=== PATIENT | male | born 1935 | race Caucasian/White ===

== ENCOUNTER 2016-10-23 08:01 | Inpatient (IN) | payer MEDICARE ==
[2016-10-23] VITALS (19 sets, daily range): BP systolic 94–160; BP diastolic 50–96; PULSE 64–94; RESP 16–20; TEMP 97.6–98.5; O2SAT 93–96
[~2016-10-23] VITALS: Ht 180.3 cm; Wt 79.1 kg
[~2016-10-23 08:01] MED LIST: ALLO100T PO; ATOR80TA PO; FENO145T2 PO; HYDR-3533 PO; METO100T9 PO; RIVA20 PO
[2016-10-23] MEDS ORDERED: SODIUM CHLOR 0.9% 1000 ML INJ 1,000 ML IV ONE (08:26)
[2016-10-23] MEDS ORDERED: SODIUM CHLORIDE 0.9% FLUSH 10 ML FLUSH IVF PRN (08:30)
--- NOTE | 2016-10-23 08:40 | PD ---
HPI Chief Complaint: Syncope/Near-Syncope Time Seen by Provider: 08:11 Travel History International Travel<30 days: No Contact w/Intl Traveler<30days: No Traveled to known affect area: No History of Present Illness HPI Patient is an 81-year-old male with history of coronary artery disease, dyspnea , gout, hyperlipidemia, hypertension, rectal cancer, skin cancer, murmurs who presents to emergency room with possible syncopal episode. Patient reports that this morning, he got up and had his coffee, reports that he then went to help his get ready for the day. Reports that he felt lightheaded and dizzy , reports that he put his coffee on the kitchen table and tried to sit down, but missed the chair. Patient reports that he thought that he was going to faint so he decided to lay down on the patient on the ground. Patient reports that he decided to get up and lay on the couch but on route to his couch, he fell. Patient reports that he wasn't sure what happened, reports that he woke up on the ground and noticed that he bumped his face and had abrasions to his face. Reports that he got up from the ground shortly thereafter and called for help. Patient reports that he feels better at this time, denies any lightheadedness or dizziness. Patient did take a baby aspirin each day, reports that 2 weeks ago, Dr. Fountain told him to stop taking his aspirin as he was getting procedures for skin cancer. Patient reports that he does follow speech language specialist, Dr. Fountain, reports that 2 weeks ago, Dr. Fountain decreased his dose of metoprolol to 25 mg twice a day ( prior to that he was taking metoprolol 50mg bid) and added Norvasc 5 mg, patient states losartan was increased to 100 mg from 50 mg daily. When EMS arrived on scene, patient was hypotensive with a blood pressure 90/60, repeat blood pressure was 80/60, patient received 500 mL's of fluid, repeat blood pressure was 109/77. Fire rescue did report an initial pulse ox of 74% on room air, when evac arrived on scene, pt's pulse ox of 95% on room air. Patient does not use oxygen at home, denies history of COPD, CHF. PFSH Past Medical History Blood Disorders: No Heart Rhythm Problems: No Cancer: Yes (COLORECTAL, SKIN) Cardiovascular Problems: Yes (STENT (x1), PE & THROMBUS POST COLECTOMY) High Cholesterol: Yes Chemotherapy: Yes Chest Pain: No Congestive Heart Failure: No Diabetes: No Diminished Hearing: Yes (b hearing aides) Endocrine: No Gastrointestinal Disorders: Yes (COLORECTAL CANCER, ILEOSTOMY) Genitourinary: No Hepatitis: No Hiatal Hernia: No Hypertension: Yes (started new meds 2 wks ago) Immune Disorder: No Medical other: Yes ([employer]) Musculoskeletal: No Neurologic: No Psychiatric: No Reproductive: No Respiratory: No Immunizations Current: Yes Radiation Therapy: Yes Thyroid Disease: No Tetanus Vaccination: Unknown Influenza Vaccination: Yes Past Surgical History Abdominal Surgery: Yes (APPY, COLON RESECTION/ ILEOSTOMY) AICD: No Appendectomy: Yes Eye Surgery: Yes (CARYN. CATARACT EXTRACT.) Genitourinary Surgery: Yes (VASECTOMY) Joint Replacement: No Oral Surgery: Yes (TONSILLECTOMY) Pacemaker: No Tonsillectomy: Yes Other Surgery: Yes Social History Alcohol Use: Yes (occas) Tobacco Use: No Substance Use: No Allergies-Medications (Allergen,Severity, Reaction): Coded Allergies: Apple (Verified Allergy, Severe, tongue swells, 10/23/16) only fresh ok when cooked Fruit Juice (Verified Allergy, Severe, swelling, 10/23/16) fresh fruit [place] (Verified Allergy, Severe, tongue swells, 10/23/16) only with fresh fruit. ok when cooked Pear (Verified Allergy, Severe, tongue swells, 10/23/16) only when raw. ok cooked Plavix (Verified Allergy, Severe, swelling, 10/23/16) Codeine (Verified Allergy, Intermediate, severe headaches, 10/23/16) Reported Meds & Prescriptions Reported Meds & Active Scripts Active Reported Norvasc (Amlodipine Besylate) 5 Mg Tab 5 Mg PO DAILY Metoprolol Tartrate 50 Mg Tab 25 Mg PO BID Losartan (Losartan Potassium) 50 Mg Tab 100 Mg PO DAILY Fenofibrate 145 Mg Tab 145 Mg PO DAILY Allopurinol 100 Mg Tab 100 Mg PO DAILY Review of Systems General / Constitutional: No: Fever Eyes: No: Visual changes HENT: No: Headaches Cardiovascular: Positive: Syncope, No: Chest Pain or Discomfort Respiratory: No: Shortness of Breath Gastrointestinal: No: Abdominal Pain Genitourinary: No: Dysuria Musculoskeletal: No: Pain Skin: No Rash Neurologic: No: Weakness Psychiatric: No: Depression Endocrine: No: Polydipsia Hematologic/Lymphatic: No: Easy Bruising Physical Exam Narrative GENERAL: Mild distress SKIN: Focused skin assessment warm/dry. Patient with 0.5 cm linear laceration under left eye HEAD: Atraumatic. Normocephalic. EYES: Pupils equal and round. No scleral icterus. No injection or drainage. ENT: No nasal bleeding or discharge. Mucous membranes pink and moist. NECK: Trachea midline. No JVD. CARDIOVASCULAR: Regular rate and rhythm. No murmur appreciated. RESPIRATORY: No accessory muscle use. Clear to auscultation. Breath sounds equal bilaterally. GASTROINTESTINAL: Abdomen soft, non-tender, nondistended. Hepatic and splenic margins not palpable. MUSCULOSKELETAL: No obvious deformities. No clubbing. No cyanosis. No edema. NEUROLOGICAL: Awake and alert. No obvious cranial nerve deficits. Motor grossly within normal limits. Normal speech. PSYCHIATRIC: Appropriate mood and affect; insight and judgment normal. Data Data Last Documented VS Vital Signs Date Time Temp Pulse Resp B/P Pulse Ox O2 Delivery O2 Flow Rate FiO2 10/23/16 10:02 84 18 116/65 93 Nasal Cannula 2 10/23/16 08:10 98.5 Orders Electrocardiogram (10/23/16 08:26) Complete Blood Count With Diff (10/23/16 08:26) Comprehensive Metabolic Panel (10/23/16 08:26) Magnesium (Mg) (10/23/16 08:26) B-Type Natriuretic Peptide (10/23/16 08:26) Ckmb (Isoenzyme) Profile (10/23/16 08:26) Troponin I (10/23/16 08:26) Act Partial Throm Time (Ptt) (10/23/16 08:26) Prothrombin Time / Inr (Pt) (10/23/16 08:26) Urinalysis - C+S If Indicated (10/23/16 08:26) Chest, Single Ap (10/23/16 08:26) Ct Brain W/O Iv Contrast(Rout) (10/23/16 08:26) Ecg Monitoring (10/23/16 08:26) Iv Access Insert/Monitor (10/23/16 08:26) Oximetry (10/23/16 08:26) Sodium Chloride 0.9% Flush (Ns Flush) (10/23/16 08:30) Sodium Chlor 0.9% 1000 Ml Inj (Ns 1000 M (10/23/16 08:26) Orthostatic Vital Signs (10/23/16 08:26) Wound Care (10/23/16 08:28) Electrocardiogram (10/23/16 ) Urine Culture (10/23/16 09:36) Aspirin Chew (Aspirin Chew) (10/23/16 10:15) Ceftriaxone Inj (Rocephin Inj) (10/23/16 10:15) Consult Cardiology (10/23/16 ) Admit Order (Ed Use Only) (10/23/16 10:16) Labs Laboratory Tests Test 10/23/16 10/23/16 10/23/16 08:32 08:50 09:36 White Blood Count 10.5 TH/MM3 Red Blood Count 4.21 MIL/MM3 Hemoglobin 12.7 GM/DL Hematocrit 38.2 % Mean Corpuscular Volume 90.8 FL Mean Corpuscular Hemoglobin 30.2 PG Mean Corpuscular Hemoglobin 33.3 % Concent Red Cell Distribution Width 14.5 % Platelet Count 143 TH/MM3 Mean Platelet Volume 8.1 FL Neutrophils (%) (Auto) 87.4 % Lymphocytes (%) (Auto) 6.9 % Monocytes (%) (Auto) 3.1 % Eosinophils (%) (Auto) 2.2 % Basophils (%) (Auto) 0.4 % Neutrophils # (Auto) 9.2 TH/MM3 Lymphocytes # (Auto) 0.7 TH/MM3 Monocytes # (Auto) 0.3 TH/MM3 Eosinophils # (Auto) 0.2 TH/MM3 Basophils # (Auto) 0.0 TH/MM3 CBC Comment DIFF FINAL Differential Comment Sodium Level 139 MEQ/L Potassium Level 3.9 MEQ/L Chloride Level 107 MEQ/L Carbon Dioxide Level 22.0 MEQ/L Anion Gap 10 MEQ/L Blood Urea Nitrogen 22 MG/DL Creatinine 1.58 MG/DL Estimat Glomerular Filtration 42 ML/MIN Rate Random Glucose 190 MG/DL Calcium Level 9.0 MG/DL Magnesium Level 1.9 MG/DL Total Bilirubin 0.4 MG/DL Aspartate Amino Transf 64 U/L (AST/SGOT) Alanine Aminotransferase 36 U/L (ALT/SGPT) Alkaline Phosphatase 75 U/L Total Creatine Kinase 97 U/L Troponin I 0.13 NG/ML B-Type Natriuretic Peptide 25 PG/ML Total Protein 6.5 GM/DL Albumin 3.1 GM/DL Prothrombin Time 12.7 SEC Prothromb Time International 1.1 RATIO Ratio Activated Partial 27.8 SEC Thromboplast Time Urine Color LIGHT-YELLOW Urine Turbidity CLEAR Urine pH 6.0 Urine Specific [place] 1.007 Urine Protein 30 mg/dL Urine Glucose (UA) TRACE mg/dL Urine Ketones NEG mg/dL Urine Occult Blood TRACE Urine Nitrite NEG Urine Bilirubin NEG Urine Urobilinogen LESS THAN 2.0 MG/DL Urine Leukocyte Esterase NEG Urine RBC 5 /hpf Urine WBC 10 /hpf Urine Squamous Epithelial <1 /hpf Cells Urine Bacteria OCC /hpf Urine Mucus FEW /lpf Microscopic Urinalysis Comment CULTURE INDICATED MDM Medical Decision Making Medical Screen Exam Complete: Yes Emergency Medical Condition: Yes Interpretation(s) EKG at 0828: NSR at 93bpm, qt/qtc: 416/466, lbbb, no acute changes Vital Signs Date Time Temp Pulse Resp B/P Pulse Ox O2 Delivery O2 Flow Rate FiO2 10/23/16 08:10 94 20 118/69 95 Differential Diagnosis ACS, arrhythmia, intracranial hemorrhage, CVA, TIA, electrolyte abnormality, dehydration, orthostatic hypotension Narrative Course Patient is an 81-year-old male who presents to emergency room for evaluation of syncopal episode. Patient was at home today when he had this incident, patient was found to be hypoxic and hypotensive by EMS and fire rescue. Patient was given 500 and also fluids and blood pressure improved to 109/77. Patient reports that prior to this episode, he felt lightheaded and dizzy. Patient reports that he has no complaints at this time. Patient was placed on a tariff publishing agent upon arrival to the emergency room. EKG obtained. Plan to obtain CT of the head, will obtain lab work, orthostatic vital signs an x-ray of the chest. Plan to place Dermabond to his laceration under his left eye. Vital Signs Date Time Temp Pulse Resp B/P Pulse Ox O2 Delivery O2 Flow Rate FiO2 10/23/16 10:02 84 18 116/65 93 Nasal Cannula 2 10/23/16 09:27 91 20 109/57 99 20 117/56 100 20 128/57 10/23/16 09:22 95 Nasal Cannula 2 10/23/16 09:11 88 20 94/50 96 Nasal Cannula 2 10/23/16 08:31 94 Nasal Cannula 2 10/23/16 08:10 94 20 118/69 95 Laboratory Tests Test 10/23/16 10/23/16 10/23/16 08:32 08:50 09:36 White Blood Count 10.5 TH/MM3 (4.0-11.0) Red Blood Count 4.21 MIL/MM3 (4.50-5.90) Hemoglobin 12.7 GM/DL (13.0-17.0) Hematocrit 38.2 % (39.0-51.0) Mean Corpuscular Volume 90.8 FL (80.0-100.0) Mean Corpuscular Hemoglobin 30.2 PG (27.0-34.0) Mean Corpuscular Hemoglobin 33.3 % Concent (32.0-36.0) Red Cell Distribution Width 14.5 % (11.6-17.2) Platelet Count 143 TH/MM3 (150-450) Mean Platelet Volume 8.1 FL (7.0-11.0) Neutrophils (%) (Auto) 87.4 % (16.0-70.0) Lymphocytes (%) (Auto) 6.9 % (9.0-44.0) Monocytes (%) (Auto) 3.1 % (0.0-8.0) Eosinophils (%) (Auto) 2.2 % (0.0-4.0) Basophils (%) (Auto) 0.4 % (0.0-2.0) Neutrophils # (Auto) 9.2 TH/MM3 (1.8-7.7) Lymphocytes # (Auto) 0.7 TH/MM3 (1.0-4.8) Monocytes # (Auto) 0.3 TH/MM3 (0-0.9) Eosinophils # (Auto) 0.2 TH/MM3 (0-0.4) Basophils # (Auto) 0.0 TH/MM3 (0-0.2) CBC Comment DIFF FINAL Differential Comment Sodium Level 139 MEQ/L (136-145) Potassium Level 3.9 MEQ/L (3.5-5.1) Chloride Level 107 MEQ/L (98-107) Carbon Dioxide Level 22.0 MEQ/L (21.0-32.0) Anion Gap 10 MEQ/L (5-15) Blood Urea Nitrogen 22 MG/DL (7-18) Creatinine 1.58 MG/DL (0.60-1.30) Estimat Glomerular Filtration 42 ML/MIN (>89) Rate Random Glucose 190 MG/DL (74-106) Calcium Level 9.0 MG/DL (8.5-10.1) Magnesium Level 1.9 MG/DL (1.5-2.5) Total Bilirubin 0.4 MG/DL (0.2-1.0) Aspartate Amino Transf 64 U/L (15-37) (AST/SGOT) Alanine Aminotransferase 36 U/L (12-78) (ALT/SGPT) Alkaline Phosphatase 75 U/L (45-117) Total Creatine Kinase 97 U/L (39-308) Troponin I 0.13 NG/ML (0.02-0.05) B-Type Natriuretic Peptide 25 PG/ML (0-100) Total Protein 6.5 GM/DL (6.4-8.2) Albumin 3.1 GM/DL (3.4-5.0) Prothrombin Time 12.7 SEC (9.8-11.6) Prothromb Time International 1.1 RATIO Ratio Activated Partial 27.8 SEC Thromboplast Time (24.3-30.1) Urine Color LIGHT-YELLOW (YELLW/STRAW) Urine Turbidity CLEAR (CLEAR) Urine pH 6.0 (5.0-8.5) Urine Specific [place] 1.007 (1.002-1.035) Urine Protein 30 mg/dL (NEG-TRACE) Urine Glucose (UA) TRACE mg/dL (NEG) Urine Ketones NEG mg/dL (NEG) Urine Occult Blood TRACE (NEG) Urine Nitrite NEG (NEG) Urine Bilirubin NEG (NEG) Urine Urobilinogen LESS THAN 2.0 MG/DL (LESS THAN 2.0) Urine Leukocyte Esterase NEG (NEG) Urine RBC 5 /hpf (0-3) Urine WBC 10 /hpf (0-5) Urine Squamous Epithelial <1 /hpf (0-5) Cells Urine Bacteria OCC /hpf (NONE) Urine Mucus FEW /lpf (OCC) Microscopic Urinalysis Comment CULTURE INDICATED Laboratory Tests Test 10/23/16 10/23/16 10/23/16 08:32 08:50 09:36 White Blood Count 10.5 TH/MM3 (4.0-11.0) Red Blood Count 4.21 MIL/MM3 (4.50-5.90) Hemoglobin 12.7 GM/DL (13.0-17.0) Hematocrit 38.2 % (39.0-51.0) Mean Corpuscular Volume 90.8 FL (80.0-100.0) Mean Corpuscular Hemoglobin 30.2 PG (27.0-34.0) Mean Corpuscular Hemoglobin 33.3 % Concent (32.0-36.0) Red Cell Distribution Width 14.5 % (11.6-17.2) Platelet Count 143 TH/MM3 (150-450) Mean Platelet Volume 8.1 FL (7.0-11.0) Neutrophils (%) (Auto) 87.4 % (16.0-70.0) Lymphocytes (%) (Auto) 6.9 % (9.0-44.0) Monocytes (%) (Auto) 3.1 % (0.0-8.0) Eosinophils (%) (Auto) 2.2 % (0.0-4.0) Basophils (%) (Auto) 0.4 % (0.0-2.0) Neutrophils # (Auto) 9.2 TH/MM3 (1.8-7.7) Lymphocytes # (Auto) 0.7 TH/MM3 (1.0-4.8) Monocytes # (Auto) 0.3 TH/MM3 (0-0.9) Eosinophils # (Auto) 0.2 TH/MM3 (0-0.4) Basophils # (Auto) 0.0 TH/MM3 (0-0.2) CBC Comment DIFF FINAL Differential Comment Sodium Level 139 MEQ/L (136-145) Potassium Level 3.9 MEQ/L (3.5-5.1) Chloride Level 107 MEQ/L (98-107) Carbon Dioxide Level 22.0 MEQ/L (21.0-32.0) Anion Gap 10 MEQ/L (5-15) Blood Urea Nitrogen 22 MG/DL (7-18) Creatinine 1.58 MG/DL (0.60-1.30) Estimat Glomerular Filtration 42 ML/MIN (>89) Rate Random Glucose 190 MG/DL (74-106) Calcium Level 9.0 MG/DL (8.5-10.1) Magnesium Level 1.9 MG/DL (1.5-2.5) Total Bilirubin 0.4 MG/DL (0.2-1.0) Aspartate Amino Transf 64 U/L (15-37) (AST/SGOT) Alanine Aminotransferase 36 U/L (12-78) (ALT/SGPT) Alkaline Phosphatase 75 U/L (45-117) Total Creatine Kinase 97 U/L (39-308) Troponin I 0.13 NG/ML (0.02-0.05) B-Type Natriuretic Peptide 25 PG/ML (0-100) Total Protein 6.5 GM/DL (6.4-8.2) Albumin 3.1 GM/DL (3.4-5.0) Prothrombin Time 12.7 SEC (9.8-11.6) Prothromb Time International 1.1 RATIO Ratio Activated Partial 27.8 SEC Thromboplast Time (24.3-30.1) Urine Color LIGHT-YELLOW (YELLW/STRAW) Urine Turbidity CLEAR (CLEAR) Urine pH 6.0 (5.0-8.5) Urine Specific [place] 1.007 (1.002-1.035) Urine Protein 30 mg/dL (NEG-TRACE) Urine Glucose (UA) TRACE mg/dL (NEG) Urine Ketones NEG mg/dL (NEG) Urine Occult Blood TRACE (NEG) Urine Nitrite NEG (NEG) Urine Bilirubin NEG (NEG) Urine Urobilinogen LESS THAN 2.0 MG/DL (LESS THAN 2.0) Urine Leukocyte Esterase NEG (NEG) Urine RBC 5 /hpf (0-3) Urine WBC 10 /hpf (0-5) Urine Squamous Epithelial <1 /hpf (0-5) Cells Urine Bacteria OCC /hpf (NONE) Urine Mucus FEW /lpf (OCC) Microscopic Urinalysis Comment CULTURE INDICATED Last Impressions Head CT 10/23/16825 Signed Impressions: Service Date/Time: October 08:54 - CONCLUSION: No acute intracranial findings. Venkatesh Mistry MD Chest X-Ray 10/23/16825 Signed Impressions: Service Date/Time: October 08:28 - CONCLUSION: No acute cardiopulmonary disease identified. Venkatesh Mistry MD CT of the head shows no intracranial findings, x-ray of the chest shows no acute cardio possible disease, WBC is 10.5, hemoglobin is 12.7, hematocrit is 38.2, platelets is 143 Sodium 139, potassium 3.9, BUN 82, creat 1.58, glucose 190 (creat elevated from baseline) Troponin 0.13 EKG was repeated at 1007: NSR at 85bpm, qt/qtc: 424/466, lbbb patient given asa Case reviewed with Dr. Mathew will admit to Dr. Mantilla service call made to dr. fountain with [facility] Procedures Procedure Narrative LACERATION LOCATION: under left eye LENGTH: 0.5cm NUMBER OF STITCHES/AUREA: 0 - dermabond was used for laceration repair REPAIR: The area of the laceration was prepped with Betadine and sterilely draped. The wound was copiously irrigated and explored without evidence of foreign body, tendon injury or neurovascular injury. The wound was closed using dermabond. This was a single layer repair. A sterile dressing was applied. The patient was advised to keep the dressing clean and dry. Patient tolerated the procedure well. Diagnosis Primary Impression: Syncope and collapse Additional Impressions: Laceration of face Thrombocytopenia Anemia NSTEMI (non-ST elevated myocardial infarction) Renal insufficiency UTI (urinary tract infection) Admitting Information Admitting Physician Requests: Kateryna Diaz DO Oct 23, 2016 08:40
[2016-10-23 08:52] LABS: AUTOMATED NEUTROPHIL # 9.2 TH/MM3 (1.8-7.7); BASOPHIL % 0.4 % (0.0-2.0); EOSINOPHIL # 0.2 TH/MM3 (0-0.4); EOSINOPHIL % 2.2 % (0.0-4.0); HEMATOCRIT 38.2 % (39.0-51.0); HEMO FLAGS DIFF FINAL; LYMPH % 6.9 % (9.0-44.0); LYMPHOCYTE # 0.7 TH/MM3 (1.0-4.8); MEAN CELL VOLUME 90.8 FL (80.0-100.0); MEAN CORPUSCULAR HEMOGLOBIN 30.2 PG (27.0-34.0); MEAN CORPUSCULAR HGB CONC 33.3 % (32.0-36.0); MONO % 3.1 % (0.0-8.0); NEUT % 87.4 % (16.0-70.0); PLATELET COUNT 143 TH/MM3 (150-450); RED BLOOD COUNT 4.21 MIL/MM3 (4.50-5.90); RED CELL DISTRIBUTION WIDTH 14.5 % (11.6-17.2); WHITE BLOOD COUNT 10.5 TH/MM3 (4.0-11.0)
[2016-10-23] MEDS ORDERED: METO50TA PO (08:56)
[2016-10-23] MEDS ORDERED: ALLO100T PO (08:56)
[2016-10-23] MEDS ORDERED: FENO145T2 PO (08:56)
[2016-10-23] MEDS ORDERED: LOSA50TA PO (08:56)
[2016-10-23] MEDS ORDERED: AMLO5 PO (08:57)
[2016-10-23 09:13] LABS: ANION GAP 10 MEQ/L (5-15); AST (GOT) 64 U/L (15-37); BLOOD UREA NITROGEN 22 MG/DL (7-18); CHLORIDE 107 MEQ/L (98-107); GLOMERULAR FILTRATION RATE 42 ML/MIN (>89); MAGNESIUM 1.9 MG/DL (1.5-2.5); POTASSIUM 3.9 MEQ/L (3.5-5.1); SODIUM (NA) 139 MEQ/L (136-145)
[2016-10-23 09:18] LABS: APTT (PATIENT) 27.8 SEC (24.3-30.1); INTERNATIONAL NORMALIZED RATIO 1.1 RATIO; PROTHROMBIN TIME - PATIENT 12.7 SEC (9.8-11.6)
[2016-10-23 09:18] LABS: ALKALINE PHOSPHATASE 75 U/L (45-117); ALT (GPT) 36 U/L (12-78); TOTAL BILIRUBIN ADULT 0.4 MG/DL (0.2-1.0)
--- NOTE | 2016-10-23 09:22 | RADRPT ---
EXAM DATE/TIME: 10/23/2016 08:54 [facility] COMPARISON: No previous studies available for comparison. INDICATIONS : Dizziness with fall RADIATION DOSE: 56.35 CTDIvol (mGy) MEDICAL HISTORY : Cardiovascular disease. Hypertension. SURGICAL HISTORY : Appendectomy. Ileostomy ENCOUNTER: Initial ACUITY: 1 day PAIN SCALE: 0/10 LOCATION: cranial TECHNIQUE: Multiple contiguous axial images were obtained of the head. Using automated exposure control and adj ustment of the mA and/or kV according to patient size, radiation dose was kept as low as reasonably a chievable to obtain optimal diagnostic quality images. FINDINGS: CEREBRUM: The ventricles are normal for age. No evidence of midline shift, mass lesion, hemorrhage or acute in farction. No extra-axial fluid collections are seen. POSTERIOR FOSSA: The cerebellum and brainstem are intact. The 4th ventricle is midline. The cerebellopontine angle i s unremarkable. EXTRACRANIAL: The visualized portion of the orbits is intact. SKULL: The calvaria is intact. No evidence of skull fracture. CONCLUSION: No acute intracranial findings. Venkatesh Mistry MD on October 23, 2016 at 9:18 Board Certified Radiologist. This report was verified electronically.
[2016-10-23 09:25] LABS: CREATINE KINASE 97 U/L (39-308)
--- NOTE | 2016-10-23 09:43 | RADRPT ---
EXAM DATE/TIME: 10/23/2016 08:28 [facility] COMPARISON: No previous studies available for comparison. INDICATIONS : Syncope MEDICAL HISTORY : None. SURGICAL HISTORY : None. ENCOUNTER: Initial ACUITY: 1 day PAIN SCORE: 0/10 LOCATION: Bilateral chest FINDINGS: Single AP view of the chest. The lungs are clear. Cardiomediastinal silhouette within normal limits. No evidence of pleural effusion or pneumothorax. CONCLUSION: No acute cardiopulmonary disease identified. Venkatesh Mistry MD on October 23, 2016 at 9:27 Board Certified Radiologist. This report was verified electronically.
[2016-10-23 10:01] LABS: BACTERIA, URINE OCC /hpf; BLOOD, URINE TRACE (NEG); COMMENT (UR) CULTURE INDICATED; CULTURE IF INDICATED CULTURE INDICATED; GLUCOSE,URINE TRACE mg/dL (NEG); KETONE, URINE NEG (NEG); MUCUS URINE FEW /lpf (OCC); NITRITE,URINE NEG (NEG); SQUAMOUS EPITHELIAL CELL URINE <1 /hpf (0-5); URINE COLOR LIGHT-YELLOW (YELLW/STRAW)
[2016-10-23] MEDS ORDERED: ASPIRIN 81 MG CHEW TAB CHEW ONE (10:15)
[2016-10-23] MEDS ORDERED: cefTRIAXone INJ 1,000 MG in SODIUM CHLORIDE 0.9% INJ 100 ML IV ONE (10:15)
--- NOTE | 2016-10-23 10:24 | HHI.HP ---
[facility] Service Family Medicine Primary Care Physician Henrietta Olivia, DO Admission Diagnosis NSTEMI, Syncope Diagnoses: International Travel<30 Days: No Contact w/Intl Traveler<30days: No Known Affected Area: No History of Present Illness 81-year-old male with past history of CAD, high blood pressure, rectal cancer presents with syncopal-like event this morning. Patient states he got up in his normal state of health this morning. He went to the kitchen, poured himself a cup of coffee and helped his get dressed. As he approached the table, he felt "a little pain" in his left groin. This pain was different than he has ever felt before. He began feeling faint and lightheaded. He went to sit down and his coffee started to spill. He grabbed for his coffee and spilled it. His states he had a staring gaze. As he went to get out of his chair to head to the living room, he stumbled, fell to his knees. He felt weak and "lightheaded." He started sweating. His called 911 and he continued to feel lightheaded and nauseous. He remained on the ground until EMS arrived. When EMS arrived, his blood pressure was reportedly 90/60 and 80/ 60. The patient received 500 mL's of fluid and his repeat blood pressure measurement was 109/77. Currently during my interview, the patient feels much better. He denies ever losing consciousness. He remembers everything that happened. Denies any seizure-like activity. He has never felt like this before. However, over the last 2 months he has becoming increasing short of breath. Normally he is able to play full 18 holes of golf, now he gets tired with 9 holes. He feels like he gets tired with 4-5 blocks of walking. He recently had a thorough workup with his dx board operator, Dr. Long, including echocardiogram which she reports as normal. He also had a stress test and EKG which were reportedly within normal limits. His dx board operator has made medication adjustments including increasing his losartan and decreasing his metoprolol medication. He denies any urinary symptoms. He denies dizziness or vertigo. Denies chest pain or palpitations. (Walker Mathew MD R2) Review of Systems Constitutional: COMPLAINS OF: Fatigue, DENIES: Fever, Weight loss, Chills Endocrine: DENIES: Polydipsia, Polyuria Eyes: DENIES: Blurred vision, Diplopia Ears, nose, mouth, throat: DENIES: Vertigo, Throat pain, Ear Pain, Running Nose Respiratory: COMPLAINS OF: Shortness of breath, DENIES: Cough, Sputum production Cardiovascular: COMPLAINS OF: Syncope, DENIES: Chest pain, Palpitations Gastrointestinal: DENIES: Abdominal pain, Constipation, Diarrhea, Nausea, Vomiting Genitourinary: DENIES: Urgency, Hematuria, Dysuria, Nocturia Neurologic: COMPLAINS OF: Abnormal gait, DENIES: Headache, Localized weakness Psychiatric: DENIES: Anxiety, Confusion, Mood changes (Walker Mathew MD R2) Past Family Social History Past Medical History Basal cell cancer (both forearms, scalp, left face) Melanoma CAD Gout Hyperlipidemia Rectal cancer-follows now with Dr. King (last visit 08/15/16); he underwent radiation and Xeloda chemotherapy followed by surgery. he did not require any adjuvant chemotherapy. Previous radiation therapy Pulmonary embolism (04/2015)-on xarelto in 2014 DVT Past Surgical History Colonoscopy 2015 Cataract removal 2014 Coronary stent 1994 Vasectomy 1974 Appendectomy 1962 Tonsillectomy 1939 Reported Medications Reported Meds & Active Scripts Active Reported Norvasc (Amlodipine Besylate) 5 Mg Tab 5 Mg PO DAILY Metoprolol Tartrate 50 Mg Tab 25 Mg PO BID Losartan (Losartan Potassium) 50 Mg Tab 100 Mg PO DAILY Fenofibrate 145 Mg Tab 145 Mg PO DAILY Allopurinol 100 Mg Tab 100 Mg PO DAILY (Walker Mathew MD R2) Allergies: Coded Allergies: Apple (Verified Allergy, Severe, tongue swells, 10/23/16) only fresh ok when cooked Fruit Juice (Verified Allergy, Severe, swelling, 10/23/16) fresh fruit Kemper (Verified Allergy, Severe, tongue swells, 10/23/16) only with fresh fruit. ok when cooked Pear (Verified Allergy, Severe, tongue swells, 10/23/16) only when raw. ok cooked Plavix (Verified Allergy, Severe, swelling, 10/23/16) Codeine (Verified Allergy, Intermediate, severe headaches, 10/23/16) Active Ordered Medications Active Medications Aspirin 162 mg 162 mg ONCE ONCE CHEW Last administered on 10/23/16t 10:08; Admin Dose 162 MG; Start 10/23/16 at 10:15; Stop 10/23/16 at 10:16 Ceftriaxone Sodium/Sodium Chloride (Rocephin Inj/NS Inj) 100 ml @ 200 mls/hr ONCE ONCE IV; Start 10/23/16 at 10:15; Stop 10/23/16 at 10:44 Sodium Chloride (NS 1000 ml Inj) 1,000 ml @ 1,000 mls/hr Q1H ONCE IV Last administered on 10/23/16t 09:08; Admin Dose 1,000 MLS/HR; Start 10/23/16 at 08:26 ; Stop 10/23/16 at 09:25; Status DC Sodium Chloride 2 ml 2 ml UNSCH PRN IVF; Start 10/23/16 at 08:30 Family History adopted. Social History No tobacco. No alcohol Independent of ADLs and IADLs. Lives with his . He does have advance directives and living will. (Walker Mathew MD R2) Physical Exam Vital Signs Vital Signs Date Time Temp Pulse Resp B/P Pulse Ox O2 Delivery O2 Flow Rate FiO2 10/23/16 10:02 84 18 116/65 93 Nasal Cannula 2 10/23/16 09:27 91 20 109/57 99 20 117/56 100 20 128/57 10/23/16 09:22 95 Nasal Cannula 2 10/23/16 09:11 88 20 94/50 96 Nasal Cannula 2 10/23/16 08:31 94 Nasal Cannula 2 10/23/16 08:10 98.5 94 20 118/69 95 Physical Exam Vital signs: Within normal limits, Orthostatics reviewed. GENERAL: Elderly male lying comfortably in bed ; no acute distress. Laceration over left eyebrow improved after Dermabond treatment. SKIN: Cool and dry. HEAD: Atraumatic. Normocephalic. No temporal or scalp tenderness. EYES: Pupils equal round and reactive. Extraocular motions intact. No scleral icterus. No injection or drainage. ENT: Nose without bleeding, purulent drainage or septal hematoma. Throat without erythema, tonsillar hypertrophy or exudate. Uvula midline. Airway patent. NECK: Trachea midline. No JVD or lymphadenopathy. Supple, nontender, no meningeal signs. CARDIOVASCULAR: Regular rate and rhythm. 2/6 systolic ejection murmur RESPIRATORY: Clear to auscultation. Breath sounds equal bilaterally. No wheezes , rales, or rhonchi. GASTROINTESTINAL: Abdomen soft, non-tender, nondistended. No hepato-splenomegaly , or palpable masses. No guarding. Rectal: No prostate tenderness indicative of prostatitis MUSCULOSKELETAL: Extremities without clubbing, cyanosis, or edema. No joint tenderness, effusion, or edema noted. No calf tenderness. Negative Homans sign bilaterally. NEUROLOGICAL: Awake and alert. Cranial nerves II through XII intact. Motor and sensory grossly within normal limits. Five out of 5 muscle strength in all muscle groups. Normal speech. Laboratory Laboratory Tests Test 10/23/16 10/23/16 10/23/16 08:32 08:50 09:36 White Blood Count 10.5 Red Blood Count 4.21 Hemoglobin 12.7 Hematocrit 38.2 Mean Corpuscular Volume 90.8 Mean Corpuscular Hemoglobin 30.2 Mean Corpuscular Hemoglobin 33.3 Concent Red Cell Distribution Width 14.5 Platelet Count 143 Mean Platelet Volume 8.1 Neutrophils (%) (Auto) 87.4 Lymphocytes (%) (Auto) 6.9 Monocytes (%) (Auto) 3.1 Eosinophils (%) (Auto) 2.2 Basophils (%) (Auto) 0.4 Neutrophils # (Auto) 9.2 Lymphocytes # (Auto) 0.7 Monocytes # (Auto) 0.3 Eosinophils # (Auto) 0.2 Basophils # (Auto) 0.0 CBC Comment DIFF FINAL Differential Comment Sodium Level 139 Potassium Level 3.9 Chloride Level 107 Carbon Dioxide Level 22.0 Anion Gap 10 Blood Urea Nitrogen 22 Creatinine 1.58 Estimat Glomerular Filtration 42 Rate Random Glucose 190 Calcium Level 9.0 Magnesium Level 1.9 Total Bilirubin 0.4 Aspartate Amino Transf 64 (AST/SGOT) Alanine Aminotransferase 36 (ALT/SGPT) Alkaline Phosphatase 75 Total Creatine Kinase 97 Troponin I 0.13 B-Type Natriuretic Peptide 25 Total Protein 6.5 Albumin 3.1 Prothrombin Time 12.7 Prothromb Time International 1.1 Ratio Activated Partial 27.8 Thromboplast Time Urine Color LIGHT-YELLOW Urine Turbidity CLEAR Urine pH 6.0 Urine Specific A[place]lett 1.007 Urine Protein 30 Urine Glucose (UA) TRACE Urine Ketones NEG Urine Occult Blood TRACE Urine Nitrite NEG Urine Bilirubin NEG Urine Urobilinogen LESS THAN 2.0 Urine Leukocyte Esterase NEG Urine RBC 5 Urine WBC 10 Urine Squamous Epithelial <1 Cells Urine Bacteria OCC Urine Mucus FEW Microscopic Urinalysis Comment CULTURE INDICATED Date/Time Procedure Status Source Growth 10/23/16 09:36 Urine Culture Received Urine Clean Catch Pending (Walker Mathew MD R2) Result Diagram: 10/23/16 0832 10/23/16 0832 Imaging Last Impressions Head CT 10/23/16825 Signed Impressions: Service Date/Time: , October 23, 2016 08:54 - CONCLUSION: No acute intracranial findings. Venkatesh Mistry MD Chest X-Ray 10/23/16825 Signed Impressions: Service Date/Time: , October 23, 2016 08:28 - CONCLUSION: No acute cardiopulmonary disease identified. Venkatesh Mistry MD (Walker Mathew MD R2) Assessment and Plan Assessment and Plan 81-year-old male with history of CAD, hypertension, rectal cancer presents after syncopal event this morning. Immediate life-threatening concern is for PE versus ACS. Wells score for PE is low at 2.5; ACS rule out as below Code Status DNR Discussed Condition With Dr. Jose Rafael Murillo (Walker Mathew MD R2) Attending Attestation Patient seen, examined, and discussed with resident team. I agree with assessment and management as documented and discussed with me. The patient has been seen and examined. The chart and all resident notes have been reviewed. I agree that inpatient care is appropriate and that a two midnight stay is expected for the reasons documented in the resident history and physical. I have discussed this with the resident and certify the resident s order for inpatient admission. Mr. Beltran is a sweet 81yo gentleman admitted after collapse as described above. He denies any chest pain or SOB, but does endorse a worsening exertional dyspnea over the past few weeks. Work up revealed mildly elevated troponin, acute renal insufficiency, and asymptomatic UTI. Additional findings on exam: Left low back with bandage. Beneath, interrupted sutures consistent with recent skin lesion (melanoma) excision. No surrounding erythema, no drainage. Additional diagnosis: Normocytic anemia: No obvious active bleeding. Mild. This can be evaluated as an outpatient. (Gissel Mantilla MD) Problem List: (1) Syncope and collapse Status: Acute Plan: Differential includes UTI, cardiac, hypertension, other CT head negative Cardiology consult, known to Dr. Long Activity: Out of bed with assistance for now, as patient is fall risk EKG shows left bundle branch block, this is not new Orthostatic vitals reviewed and negative Patient has recently had an echocardiogram from Dr. Long, reported as normal per patient Troponin workup as below Ultrasound carotids Blood pressure management as below Treat UTI as below Place on telemetry Physical therapy consult Wound care for left eye laceration. (2) Elevated troponin Status: Acute Plan: Cardiology consult EKG shows left bundle branch block, this is not new. Patient not having any chest pain Trend troponin at 1500, and 2100 (3) UTI (urinary tract infection) Status: Acute Plan: He is not complaining of any urinary symptoms; no prostate tenderness on rectal exam Urine micro-pending Continue ceftriaxone 1 g daily (started 10/23-) (4) Renal insufficiency Status: Acute Plan: Creatinine elevated from baseline We'll provide light fluid hydration Recheck CMP in the morning (5) Gout Status: Chronic Plan: Continue home allopurinol (6) Hypertension Status: Chronic Plan: Patient has been hypotensive this morning with blood pressures as low as 80/60. Possible cause/attributing factor of syncopal event. There've been changes to his blood pressure medications recently, including increasing losartan to 100 mg daily and decreasing metoprolol.. Goal blood pressure between 120 systolic and 150 Hold home amlodipine 5 mg by mouth daily Hold home losartan 100 mg by mouth daily Continue home metoprolol 25 mg by mouth twice a day Continue to monitor, and add medications as necessary (7) Hyperlipidemia Status: Chronic Plan: Continue home medication (8) Thrombocytopenia Status: Chronic Plan: Platelet count 143 Continue to monitor (9) FEN/PPX Status: Acute Plan: Fluids: Normal saline at 120 mL per hour Electrolytes: Monitor and replace as needed Nutrition: Heart healthy diet Prophylaxis: Bilateral SCDs, heparin (Walker Mathew MD R2) Physician Certification 2 Midnight Certification Type: Admission for Inpatient Services Order for Inpatient Services The services are ordered in accordance with Medicare regulations or non- Medicare payer requirements, as applicable. In the case of services not specified as inpatient-only, they are appropriately provided as inpatient services in accordance with the 2-midnight benchmark. Estimated LOS (days): 2 days is the estimated time the patient will need to remain in the hospital, assuming treatment plan goals are met and no additional complications. Post-Hospital Plan: Not yet determined (Walker Mathew MD R2) Walker Mathew MD R2 Oct 23, 2016 10:24 Gissel Mantilla MD Oct 23, 2016 21:04
[2016-10-23] MEDS ORDERED: SODIUM CHLORIDE 0.9% FLUSH 10 ML FLUSH IV FLUSH PRN (10:30)
[2016-10-23] MEDS: SODIUM CHLOR 0.9% 1000 ML INJ 1,000 ML IV SCH ×2 (10:51→21:53)
--- NOTE | 2016-10-23 11:15 | EKG ---
Date Performed: 10/23/2016 Time Performed: 10:07:01 PTAGE: 81 years EKG: Sinus rhythm LEFT BUNDLE BRANCH BLOCK ABNORMAL ECG PREVIOUS TRACING : 03/16/2015 11.34 Compared to prior tracing no significant change DOCTOR: Wade Ruiz Interpretating Date/Time 10/23/2016 11:14:50
--- NOTE | 2016-10-23 11:17 | EKG ---
Date Performed: 10/23/2016 Time Performed: 08:28:32 PTAGE: 81 years EKG: Sinus rhythm MARKED LEFT AXIS DEVIATION LEFT BUNDLE BRANCH BLOCK ABNORMAL ECG Compared to the PREVIOUS TRACING from 03/16/15, rate has increased DOCTOR: Wade Ruiz Interpretating Date/Time 10/23/2016 11:16:52
[2016-10-23] MEDS ORDERED: BISACODYL 10 MG SUPP RECTAL PRN (13:00)
[2016-10-23] MEDS ORDERED: MAGNESIUM HYDROXIDE SUSP 30 ML CUP PO PRN (13:00)
[2016-10-23] MEDS ORDERED: ONDANSETRON HCL 4 MG/2 ML VIAL IVP PRN (13:00)
--- NOTE | 2016-10-23 13:20 | MB ---
cc: NAZARIO RUSHING MD DATE OF CONSULTATION 10/23/2016 REASON FOR CONSULTATION Syncope HISTORY OF PRESENT ILLNESS Mr. Beltran is an 81-year-old patient of my partner Dr. Anderson. He does have a remote history of coronary stent. The patient this morning was going about his usual activities when without any real warning he had a syncopal episode. Per the ER records, he did begin to feel faint and lightheaded and apparently fell as he was getting out of the chair. He denied losing consciousness. He notes that he recently has had a workup with Dr. Anderson. He notes that his medications were recently adjusted. Upon further questioning, he has had only about 30 ounces of fluids over the last day. PAST MEDICAL HISTORY Significant for: 1. Basal cell cancer 2. Melanoma 3. CAD 4. Hyperlipidemia 5. Rectal cancer 6. Pulmonary embolism 7. DVT 8. Hypertension 9. Hyperlipidemia PAST SURGICAL HISTORY His surgical history includes: 1. Coronary stent in 1984 2. Vasectomy 3. Appendectomy 4. Tonsillectomy 5. Cataract removal OUTPATIENT MEDICATIONS Include: 1. Norvasc 2. Metoprolol 3. Losartan 4. Fenofibrate 5. Allopurinol ALLERGIES PLAVIX AND CODEINE, WELL APPLES, PEACHES AND PEARS. FAMILY HISTORY Unknown as he was astoped. SOCIAL HISTORY He is and does not drink or smoke. REVIEW OF SYSTEMS Except as mentioned in HPI, all 12 systems are negative. PHYSICAL EXAM VITAL SIGNS: 91, 20, 109/57. GENERAL: He is a well-appearing elderly man who is in no apparent distress. NECK: His neck is free from JVD. LUNGS: The lungs are bilaterally clear to auscultation. CARDIOVASCULAR: On examination, he has a normal S1 and S2. ABDOMEN: The abdomen is soft. EXTREMITIES: Free from edema. LABORATORY FINDINGS Significant for a creatinine of 1.58 and a troponin 0.13. Telemetry from EMS shows an irregular supraventricular rhythm consistent with atrial fibrillation. EKG shows sinus rhythm with a left bundle branch block. IMPRESSION Syncope - The patient does appear to have responded to fluids as his initial blood pressure was systolic at 90 with EMS and came up to about 120 after 500 of fluid. This may have also been exacerbated by an apparent new onset of atrial fibrillation. At this point, he is back in sinus. I would not use any anticoagulation at this point secondary to the recent fall. Elevated troponin - May have been secondary to A. fib with RVR versus ischemia versus other. The patient has had a recent normal stress test with Dr. Anderson and is a DNR, thus we will continue with conservative measures. I suspect that this is secondary to his A. Fib, RVR and renal insufficiency. Ramus renal insufficiency - This is being managed by the primary team. DNR. Nazario Rushing M.D. GIRISH/RUBEN /12:44 PM /1:11 PM
[2016-10-23] MEDS ORDERED: LACTULOSE SYRUP 20 GM/30 ML CUP PO PRN (14:00)
--- NOTE | 2016-10-23 17:01 | RADRPT ---
EXAM DATE/TIME: 10/23/2016 14:55 [facility] COMPARISON: No previous studies available for comparison. INDICATIONS : Syncope. MEDICAL HISTORY : Hypercholesterolemia. Hypertension. Bilateral hearing aides. Pulmonary embolism. Colorectal cancer. Skin cancer. SURGICAL HISTORY : Tonsillectomy. Coronary artery stent. Appendectomy. Bilateral cataract extraction. Colectomy. Colon r esection. Ileostomy. Vasectomy. Chemotherapy. Radiation therapy. ENCOUNTER: Initial ACUITY: 1 day PAIN SCORE: 1/10 LOCATION: Bilateral neck PEAK SYSTOLIC VELOCITIES (cm/sec): ICA/CCA RATIO: Right: 1.3 Left: 1.0 ICA: Right: 109.3 Left: 95.3 CCA: Right: 82.5 Left: 94.3 ECA: Right: 127.9 Left: 95.3 VERTEBRAL: Right: 55.6 antegrade Left: 49.9 antegrade Elevated flow velocities and ICA/CCA ratios have been found to correlate with increased degrees of vessel stenosis, calculated as percentage of diameter relative to a normal segment of distal ICA/CCA FINDINGS: RIGHT CAROTID: Bulky calcified plaque in the carotid bulb extending to the origin of the external carotid artery and slightly into the internal carotid artery. LEFT CAROTID: Bulky calcified plaque in the carotid bulb. VERTEBRAL ARTERIES: Antegrade flow is seen in both vertebral arteries. MISCELLANEOUS: None. CONCLUSION: 1. Bulky calcified plaque in the right carotid bulb extending to the origin of the internal carotid a rtery with resultant mild, less than 50%, stenosis. 2. Bulky calcified plaque in the left carotid bulb that does not appear to involve the internal carot id artery origin without significant associated internal carotid artery stenosis. Gilbert Resendez MD on October 23, 2016 at 16:54 Board Certified Radiologist. This report was verified electronically.
[2016-10-23] MEDS ORDERED: cloNIDine HCL 0.2 MG TAB PO PRN (21:00)
[2016-10-23] MEDS ORDERED: SENNOSIDES 8.6 MG TAB PO PRN (21:00)
--- NOTE | 2016-10-23 21:13 | HHI.FPPN ---
Addendum to progress note ADDENDUM Reason for addendum: Additonal documentation Additional information Patient reevaluated at 2100. Delayed lab draw revealed troponin elevation to 2.61 Patient denies chest pain. He is doing "great." No problems. Denies shortness of breath, fever, chills. Objective: Vitals 97.8, 79, 18, 136/88, 94% on room air Gen.: Well appearing, laying comfortably in bed, pleasant. Cardiac: Regular rate and rhythm. Systolic ejection murmur Respirations: Clear to auscultation bilaterally Assessment/plan: Elevated troponin- nursing spoke with Dr. Taylor; no intervention to be done. No repeat troponin level necessary. Patient is pain-free. Continue medical management Walker Mathew MD R2 Oct 23, 2016 21:13
[2016-10-23] MEDS: SODIUM CHLORIDE 0.9% FLUSH 10 ML FLUSH IV FLUSH SCH (21:53)
[2016-10-23] MEDS: DOCUSATE SODIUM 50 MG/SENNA 8.6 MG TAB PO SCH (21:54)
[2016-10-23] MEDS: METOPROLOL TARTRATE 50 MG TAB PO SCH (21:54)
[2016-10-23] MEDS: HEPARIN SODIUM - SQ 10,000 UNITS/ML VIAL SQ SCH (21:54)
[2016-10-23 22:13] LABS: HEMOGLOBIN A1a 0.9 %; HEMOGLOBIN A1b 1.5 %; HEMOGLOBIN Ao 84.7 %; HEMOGLOBIN LA1C 2.6 %; HEMOGLOBIN P3 5.4 %
[2016-10-24] VITALS (22 sets, daily range): BP systolic 126–152; BP diastolic 77–83; PULSE 50–68; RESP 16–18; TEMP 97.5–98.9; O2SAT 94–97
[2016-10-24] MEDS: SODIUM CHLOR 0.9% 1000 ML INJ 1,000 ML IV SCH (05:59)
[2016-10-24 07:08] LABS: AUTOMATED NEUTROPHIL # 3.9 TH/MM3 (1.8-7.7); BASOPHIL % 0.6 % (0.0-2.0); EOSINOPHIL # 0.1 TH/MM3 (0-0.4); EOSINOPHIL % 2.9 % (0.0-4.0); HEMATOCRIT 37.3 % (39.0-51.0); HEMO FLAGS DIFF FINAL; LYMPH % 12.1 % (9.0-44.0); LYMPHOCYTE # 0.6 TH/MM3 (1.0-4.8); MEAN CELL VOLUME 91.4 FL (80.0-100.0); MEAN CORPUSCULAR HEMOGLOBIN 29.6 PG (27.0-34.0); MEAN CORPUSCULAR HGB CONC 32.4 % (32.0-36.0); MONO % 7.6 % (0.0-8.0); NEUT % 76.8 % (16.0-70.0); PLATELET COUNT 124 TH/MM3 (150-450); RED BLOOD COUNT 4.08 MIL/MM3 (4.50-5.90); RED CELL DISTRIBUTION WIDTH 14.7 % (11.6-17.2); WHITE BLOOD COUNT 5.1 TH/MM3 (4.0-11.0)
[2016-10-24 07:18] LABS: ALT (GPT) 49 U/L (12-78); ANION GAP 6 MEQ/L (5-15); AST (GOT) 75 U/L (15-37); BICARBONATE 23.8 MEQ/L (21.0-32.0); BLOOD UREA NITROGEN 17 MG/DL (7-18); CHLORIDE 112 MEQ/L (98-107); GLOMERULAR FILTRATION RATE 69 ML/MIN (>89); SODIUM (NA) 142 MEQ/L (136-145)
[2016-10-24 07:19] LABS: ALKALINE PHOSPHATASE 66 U/L (45-117); TOTAL BILIRUBIN ADULT 0.5 MG/DL (0.2-1.0)
--- NOTE | 2016-10-24 07:26 | PD.CARD.PN ---
Subjective Subjective Remarks PT without complaints Objective Medications Current Medications Medications (Trade) Dose Ordered Sig/Annie Route Start Time Stop Time Status Last Admin (NS 1000 ml Inj) 1,000 ml @ 120 mls/hr Q8H20M IV 10/23/16 10:27 10/24/16 05:59 (NS Flush) 2 ml UNSCH PRN IV FLUSH 10/23/16 10:30 (NS Flush) 2 ml BID IV FLUSH 10/23/16 21:00 10/23/16 21:53 (Zofran Inj) 4 mg Q6H PRN IVP 10/23/16 13:00 (Heparin Inj) 5,000 units Q12HR SQ 10/23/16 21:00 10/23/16 21:54 (Elsa-Colace) 1 tab BID PO 10/23/16 21:00 10/23/16 21:54 (Milk Of Magnesia Liq) 30 ml Q12HR PRN PO 10/23/16 13:00 (Senokot) 17.2 mg Q12HR PRN PO 10/23/16 21:00 (Dulcolax Supp) 10 mg DAILY PRN RECTAL 10/23/16 13:00 (Lactulose Liq) 30 ml DAILY PRN PO 10/23/16 14:00 (Zyloprim) 100 mg DAILY PO 10/24/16 09:00 (Tricor) 145 mg DAILY PO 10/24/16 09:00 Metoprolol Tartrate 25 mg 25 mg BID PO 10/23/16 21:00 10/23/16 21:54 (Rocephin Inj/NS Inj) 100 ml @ 200 mls/hr Q24H IV 10/24/16 09:00 (Catapres) 0.2 mg Q6H PRN PO 10/23/16 21:00 Vital Signs / I&O Vital Signs Date Time Temp Pulse Resp B/P Pulse Ox O2 Delivery O2 Flow Rate FiO2 10/24/16 06:00 57 10/24/16 05:00 57 10/24/16 04:00 58 10/24/16 03:10 97.5 65 18 146/83 94 10/24/16 03:00 57 10/24/16 02:00 64 10/24/16 01:00 64 10/24/16 00:00 62 10/23/16 23:00 64 10/23/16 23:00 98.1 66 18 118/69 93 10/23/16 22:00 70 10/23/16 21:00 74 10/23/16 20:00 76 10/23/16 19:50 97.9 76 18 160/87 95 10/23/16 19:00 76 10/23/16 18:00 82 10/23/16 17:25 94 21 10/23/16 17:00 77 10/23/16 16:00 75 10/23/16 15:00 79 10/23/16 15:00 97.8 86 18 136/88 94 10/23/16 14:08 80 10/23/16 13:14 97.6 86 16 146/96 96 10/23/16 13:10 87 10/23/16 10:02 84 18 116/65 93 Nasal Cannula 2 10/23/16 09:27 91 20 109/57 99 20 117/56 100 20 128/57 10/23/16 09:22 95 Nasal Cannula 2 10/23/16 09:11 88 20 94/50 96 Nasal Cannula 2 10/23/16 08:31 94 Nasal Cannula 2 10/23/16 08:10 98.5 94 20 118/69 95 I/O 10/23/16 10/23/16 10/23/16 10/24/16 10/24/16 10/24/16 07:00 15:00 23:00 07:00 15:00 23:00 Intake Total 1500 ml 718 ml 1389 ml Output Total 450 ml 500 ml 470 ml Balance 1050 ml 218 ml 919 ml Intake Oral 240 ml IV Total 1500 ml 718 ml 1149 ml Output Urine Total 450 ml 500 ml 470 ml # Voids 2 Physical Exam GENERAL: Well developed, well nourished. No acute distress. HEENT: Jugular venous pressure is normal. CHEST: Lungs clear to auscultation bilaterally. Unlabored respiratory effort. CARDIAC: Regular rate and rhythm without S3, S4, or murmur. ABDOMEN: Soft, nontender, no hepatosplenomegaly. Bowel sounds present. EXTREMITIES: No clubbing, cyanosis, or edema. Laboratory Laboratory Tests Test 10/23/16 10/23/16 10/23/16 10/23/16 08:32 08:50 09:36 18:25 White Blood Count 10.5 TH/MM3 Red Blood Count 4.21 MIL/MM3 Hemoglobin 12.7 GM/DL Hematocrit 38.2 % Mean Corpuscular Volume 90.8 FL Mean Corpuscular Hemoglobin 30.2 PG Mean Corpuscular Hemoglobin 33.3 % Concent Red Cell Distribution Width 14.5 % Platelet Count 143 TH/MM3 Mean Platelet Volume 8.1 FL Neutrophils (%) (Auto) 87.4 % Lymphocytes (%) (Auto) 6.9 % Monocytes (%) (Auto) 3.1 % Eosinophils (%) (Auto) 2.2 % Basophils (%) (Auto) 0.4 % Neutrophils # (Auto) 9.2 TH/MM3 Lymphocytes # (Auto) 0.7 TH/MM3 Monocytes # (Auto) 0.3 TH/MM3 Eosinophils # (Auto) 0.2 TH/MM3 Basophils # (Auto) 0.0 TH/MM3 CBC Comment DIFF FINAL Differential Comment Sodium Level 139 MEQ/L Potassium Level 3.9 MEQ/L Chloride Level 107 MEQ/L Carbon Dioxide Level 22.0 MEQ/L Anion Gap 10 MEQ/L Blood Urea Nitrogen 22 MG/DL Creatinine 1.58 MG/DL Estimat Glomerular Filtration 42 ML/MIN Rate Random Glucose 190 MG/DL Hemoglobin A1c 5.8 % Calcium Level 9.0 MG/DL Magnesium Level 1.9 MG/DL Total Bilirubin 0.4 MG/DL Aspartate Amino Transf 64 U/L (AST/SGOT) Alanine Aminotransferase 36 U/L (ALT/SGPT) Alkaline Phosphatase 75 U/L Total Creatine Kinase 97 U/L Troponin I 0.13 NG/ML 2.61 NG/ML B-Type Natriuretic Peptide 25 PG/ML Total Protein 6.5 GM/DL Albumin 3.1 GM/DL Prothrombin Time 12.7 SEC Prothromb Time International 1.1 RATIO Ratio Activated Partial 27.8 SEC Thromboplast Time Urine Color LIGHT-YELLOW Urine Turbidity CLEAR Urine pH 6.0 Urine Specific [place] 1.007 Urine Protein 30 mg/dL Urine Glucose (UA) TRACE mg/dL Urine Ketones NEG mg/dL Urine Occult Blood TRACE Urine Nitrite NEG Urine Bilirubin NEG Urine Urobilinogen LESS THAN 2.0 MG/DL Urine Leukocyte Esterase NEG Urine RBC 5 /hpf Urine WBC 10 /hpf Urine Squamous Epithelial <1 /hpf Cells Urine Bacteria OCC /hpf Urine Mucus FEW /lpf Microscopic Urinalysis Comment CULTURE INDICATED Test 10/24/16 06:34 White Blood Count 5.1 TH/MM3 Red Blood Count 4.08 MIL/MM3 Hemoglobin 12.1 GM/DL Hematocrit 37.3 % Mean Corpuscular Volume 91.4 FL Mean Corpuscular Hemoglobin 29.6 PG Mean Corpuscular Hemoglobin 32.4 % Concent Red Cell Distribution Width 14.7 % Platelet Count 124 TH/MM3 Mean Platelet Volume 8.5 FL Neutrophils (%) (Auto) 76.8 % Lymphocytes (%) (Auto) 12.1 % Monocytes (%) (Auto) 7.6 % Eosinophils (%) (Auto) 2.9 % Basophils (%) (Auto) 0.6 % Neutrophils # (Auto) 3.9 TH/MM3 Lymphocytes # (Auto) 0.6 TH/MM3 Monocytes # (Auto) 0.4 TH/MM3 Eosinophils # (Auto) 0.1 TH/MM3 Basophils # (Auto) 0.0 TH/MM3 CBC Comment DIFF FINAL Differential Comment Sodium Level 142 MEQ/L Potassium Level 4.0 MEQ/L Chloride Level 112 MEQ/L Carbon Dioxide Level 23.8 MEQ/L Anion Gap 6 MEQ/L Blood Urea Nitrogen 17 MG/DL Creatinine 1.03 MG/DL Estimat Glomerular Filtration 69 ML/MIN Rate Random Glucose 93 MG/DL Calcium Level 8.7 MG/DL Total Bilirubin 0.5 MG/DL Aspartate Amino Transf 75 U/L (AST/SGOT) Alanine Aminotransferase 49 U/L (ALT/SGPT) Alkaline Phosphatase 66 U/L Total Protein 6.1 GM/DL Albumin 3.0 GM/DL Assessment and Plan Assessment and Plan IMPRESSION Syncope - The patient does appear to have responded to fluids as his initial blood pressure was systolic at 90 with EMS and came up to about 120 after 500 of fluid. This may have also been exacerbated by an apparent new onset of atrial fibrillation. AF- new onset in EMS tracing, though rate controlled, keep NSR -NSR since -anticoagulation controversial with fall HTN - BP remains a bit labile, continue present meds Elevated troponin - A. fib with RVR versus ischemia versus other. The patient has had a recent normal stress test - conservative measures, likely secondary A. Fib, RVR and renal insufficiency. Dispo- ok for d/c this afternoon if stable, per pt request Alba Taylor MD Oct 24, 2016 07:26
--- NOTE | 2016-10-24 08:49 | HHI.DCPOC ---
Discharge Care Plan Diagnosis: (1) Dehydration (2) UTI (urinary tract infection) (3) Renal insufficiency (4) Syncope and collapse Goals to Promote Your Health * To prevent worsening of your condition and complications * To maintain your health at the optimal level Directions to Meet Your Goals Take your medications as prescribed Follow your dietary instruction Follow activity as directed Keep your appointments as scheduled Take your immunizations and boosters as scheduled If your symptoms worsen call your PCP, if no PCP go to Urgent Care Center or Emergency Room Smoking is Dangerous to Your Health. Avoid second hand smoke Call the 24-hour hour crisis hotline for domestic abuse at Felicia Tanner MD Oct 24, 2016 08:49
[2016-10-24] MEDS ORDERED: MACR100C2 PO (08:50)
[2016-10-24] MEDS: DOCUSATE SODIUM 50 MG/SENNA 8.6 MG TAB PO SCH (08:55)
[2016-10-24] MEDS: METOPROLOL TARTRATE 50 MG TAB PO SCH (08:56)
[2016-10-24] MEDS: HEPARIN SODIUM - SQ 10,000 UNITS/ML VIAL SQ SCH (08:56)
[2016-10-24] MEDS: SODIUM CHLORIDE 0.9% FLUSH 10 ML FLUSH IV FLUSH SCH (08:57)
[2016-10-24] MEDS ORDERED: cefTRIAXone INJ 1,000 MG in SODIUM CHLORIDE 0.9% INJ 100 ML IV SCH (09:00)
[2016-10-24] MEDS ORDERED: ALLOPURINOL 100 MG TAB PO SCH (09:00)
[2016-10-24] MEDS ORDERED: FENOFIBRATE 145 MG TAB PO SCH (09:00)
--- NOTE | 2016-10-24 09:00 | HHI.FPPN ---
Subjective Remarks Patient seen and examined this morning. Denies pain. Denies chest pain or shortness of breath. Had BM this am, urinating well. Tolerating PO without N/V. He says he feels great and asks if he can go home today. (Felicia Tanner MD) Objective Vitals Vital Signs Date Time Temp Pulse Resp B/P Pulse Ox O2 Delivery O2 Flow Rate FiO2 10/24/16 07:01 55 10/24/16 06:00 57 10/24/16 05:00 57 10/24/16 04:00 58 10/24/16 03:10 97.5 65 18 146/83 94 10/24/16 03:00 57 10/24/16 02:00 64 10/24/16 01:00 64 10/24/16 00:00 62 10/23/16 23:00 64 10/23/16 23:00 98.1 66 18 118/69 93 10/23/16 22:00 70 10/23/16 21:00 74 10/23/16 20:00 76 10/23/16 19:50 97.9 76 18 160/87 95 10/23/16 19:00 76 10/23/16 18:00 82 10/23/16 17:25 94 21 10/23/16 17:00 77 10/23/16 16:00 75 10/23/16 15:00 79 10/23/16 15:00 97.8 86 18 136/88 94 10/23/16 14:08 80 10/23/16 13:14 97.6 86 16 146/96 96 10/23/16 13:10 87 10/23/16 10:02 84 18 116/65 93 Nasal Cannula 2 10/23/16 09:27 91 20 109/57 99 20 117/56 100 20 128/57 10/23/16 09:22 95 Nasal Cannula 2 10/23/16 09:11 88 20 94/50 96 Nasal Cannula 2 I/O 10/23/16 10/23/16 10/23/16 10/24/16 10/24/16 10/24/16 07:00 15:00 23:00 07:00 15:00 23:00 Intake Total 1500 ml 718 ml 1389 ml Output Total 450 ml 500 ml 470 ml Balance 1050 ml 218 ml 919 ml Intake Oral 240 ml IV Total 1500 ml 718 ml 1149 ml Output Urine Total 450 ml 500 ml 470 ml # Voids 2 (Felicia Tanner MD) Result Diagram: 10/24/1634 10/24/1634 Imaging Last Impressions Head CT 10/23/16825 Signed Impressions: Service Date/Time: October 08:54 - CONCLUSION: No acute intracranial findings. Venkatesh Mistry MD Chest X-Ray 10/23/16825 Signed Impressions: Service Date/Time: , October 23, 2016 08:28 - CONCLUSION: No acute cardiopulmonary disease identified. Venkatesh Mistry MD Carotid Artery Ultrasound 10/23/16 0000 Signed Impressions: Service Date/Time: October 14:55 - CONCLUSION: 1. Bulky calcified plaque in the right carotid bulb extending to the origin of the internal carotid artery with resultant mild, less than 50%%, stenosis. 2. Bulky calcified plaque in the left carotid bulb that does not appear to involve the internal carotid artery origin without significant associated internal carotid artery stenosis. Gilbert Resendez MD Objective Remarks GENERAL: Elderly male sitting up on side of bed, appears comfortable. No acute distress. Laceration over left eyebrow healing well without drainage or erythema. SKIN: Cool and dry. CARDIOVASCULAR: Regular rate and rhythm. 2/6 systolic ejection murmur. 2+ distal pulses bilaterally RESPIRATORY: Clear to auscultation. Breath sounds equal bilaterally. No wheezes , rales, or rhonchi. GASTROINTESTINAL: Abdomen soft, non-tender, nondistended. MUSCULOSKELETAL: Extremities without clubbing, cyanosis, or edema. No calf tenderness. NEUROLOGICAL: Awake and alert. Normal speech. PSYCH: Pleasant mood and affect. (Felicia Tanner MD) Urinary Catheter: No (Felicia Tanner MD) Vascular Central Line Catheter: No (Felicia Tanner MD) A/P Assessment and Plan 81-year-old male with history of CAD, hypertension, rectal cancer presented after syncopal event found to be in Atrial fibrillation with elevated troponin, also with UTI. Now in Normal Sinus Rhythm and clinically much improved and denies chest pain. Discharge Planning Plan for discharge this afternoon after works with PT. Cleared for discharge by cardiology. SDW Dr. Dr. Clifton Mantilla Dr. Kandavanam (Felicia Tanner MD) Attending Attestation Patient seen, examined, and discussed with resident team. I agree with assessment and management as documented and discussed with me. Patient without complaints. He requests discharge home today. Await work with PT today prior to discharge. (Gissel Mantilla MD) Problem List: (1) Syncope and collapse Status: Acute Plan: Likely 2/2 Afib with RVR and dehydration. CT head negative. Troponin elevated at 0.13, 2.61. EKG with left bundle branch block, which is not new. Ultrasound carotids negative for significant stenosis. Orthostatic vitals negative. 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 Long, reported as normal per patient Plan: * Cardiology consulted. When troponin elevated they were informed and recommended continue medical management. * Activity: Out of bed with assistance. * Physical therapy consulted, will need to evaluate patient prior to discharge * On Telemetry (2) Elevated troponin Status: Acute Plan: EKG shows left bundle branch block, which is not new. Patient not having any chest pain. Plan: * Cardiology consulted, recommended continued medical management * Cleared for discharge by cardiology (3) UTI (urinary tract infection) Status: Acute Plan: He is not complaining of any urinary symptoms; no prostate tenderness on rectal exam on admission Plan: * Ceftriaxone 1 g daily (started 10/23-) * Continue Macrobid 100 mg twice a day for 10 days on discharge * Urine culture shows no growth in 24 hours, preliminary (4) Renal insufficiency Status: Resolved Plan: Creatinine elevated from baseline on admission at 1.58, now normal at 1.03 after providing fluid hydration overnight (5) Gout Status: Chronic Plan: Continue home allopurinol (6) Hypertension Status: Chronic Plan: BP 80/60 prior to admission, possible attributing factor of syncopal event. Patient had reported drinking very little fluids the day prior to admission. Blood pressure medications recently changed, including increasing losartan to 100 mg daily and decreasing metoprolol. Blood pressures now running [id number] while not on any of his home medications Plan: * Per cardiology, continue home medications on discharge. * Blood pressure 126/77 this am without home meds, consider smaller dosages or less medication on d/c to prevent hypotension. * Home meds: Amlodipine 5 mg by mouth daily, Losartan 100 mg by mouth daily, Metoprolol 25 mg by mouth twice a day (7) Hyperlipidemia Status: Chronic Plan: * Continue home fenofibrate 145 mg by mouth daily (8) Thrombocytopenia Status: Chronic Plan: Platelet count 143 on admission, now 124 Plan: * Continue to monitor (9) FEN/PPX Status: Acute Plan: * Fluids: SLIV, tolerating PO * Electrolytes: Normal. Monitor and replace as needed * Nutrition: Heart healthy diet * Prophylaxis: Bilateral SCDs, heparin (Felicia Tanner MD) Problem Qualifiers (1) UTI (urinary tract infection): Qualified Code: N39.0 - Urinary tract infection without hematuria, site unspecified (2) Gout: (3) Hypertension: Qualified Code: I15.9 - Secondary hypertension (4) Hyperlipidemia: Qualified Code: E78.5 - Hyperlipidemia, unspecified hyperlipidemia type Felicia Tanner MD Oct 24, 2016 09:00 Gissel Mantilla MD Oct 24, 2016 17:25
[2016-10-24] MEDS ORDERED: LOSA50TA PO (16:41)
[2016-10-24] MEDS ORDERED: METO50TA PO (16:41)
== END 2016-10-24 17:35 | disposition home or self-care (01) | DRG 309 ==
LOC: NEPC 08:01 → NEDA 10:17 → HCIN 12:50
PROVIDERS: ADMIT Family Medicine; ATTEND Family Medicine
PROC: 0HQ1XZZ Repair Face Skin, External Approach (ICD-10-PCS; principal; 2016-10-23)
DX: I48.91 Unspecified atrial fibrillation (principal); N39.0 Urinary tract infection, site not specified; D69.6 Thrombocytopenia, unspecified; I95.9 Hypotension, unspecified; D64.9 Anemia, unspecified; E86.0 Dehydration; I10 Essential (primary) hypertension; S01.81XA Laceration without foreign body of other part of head, initial encounter; W18.39XA Other fall on same level, initial encounter; Y92.008 Other place in unspecified non-institutional (private) residence as the place of occurrence of the external cause; I25.10 Atherosclerotic heart disease of native coronary artery without angina pectoris; Z95.5 Presence of coronary angioplasty implant and graft; R55 Syncope and collapse; I44.7 Left bundle-branch block, unspecified; N28.9 Disorder of kidney and ureter, unspecified; M10.9 Gout, unspecified; E78.5 Hyperlipidemia, unspecified; H91.8X3 Other specified hearing loss, bilateral; Z66 Do not resuscitate; Z85.820 Personal history of malignant melanoma of skin; Z92.3 Personal history of irradiation; Z85.048 Personal history of other malignant neoplasm of rectum, rectosigmoid junction, and anus; Z92.21 Personal history of antineoplastic chemotherapy; Z86.711 Personal history of pulmonary embolism
CPT/HCPCS: 70450; 71010; 76937; 80053; 81001; 82550; 83036; 83735; 83880; 84484; 85025; 85610; 85730; 87086; 93005; 93880; 96360; J0696; J1644; J7030

== ENCOUNTER 2016-12-12 05:26 | Day surgery (SDC) | payer MEDICARE ==
[~2016-12-12 05:26] MED LIST changes: -ATOR80TA PO; -HYDR-3533 PO; +LOSA50TA PO; +MACR100C2 PO; -METO100T9 PO; +METO50TA PO; -RIVA20 PO
[2016-12-12] MEDS ORDERED: MUPIROCIN 2% OINT 1 APPLIC/GM SYR NASAL SCH (06:00)
[2016-12-12] MEDS ORDERED: POVIDONE IODINE 5% (ANTISEPSIS KIT) 4 APPLICATIONS EACH NARE SCH (06:00)
[2016-12-12] MEDS ORDERED: CHLORHEXIDINE GLUCONATE 2 % 1 PACK (2 CLOTHS) TOPICAL SCH (06:00)
[2016-12-12] MEDS ORDERED: NS 1000 ML IV SCH (06:00)
[2016-12-12] MEDS ORDERED: ceFAZolin 2 GM PREMIX 50 ML IV SCH (06:00)
[2016-12-12] MEDS ORDERED: MIDAZOLAM HCL 5 MG/5 ML VIAL ONE (08:24)
--- NOTE | 2016-12-12 10:00 | MR ---
cc: LEI ANDERSON MD DATE: 12/12/2016 PROCEDURE PERFORMED Loop recorder insertion REFERRING PHYSICIAN Lei Anderson MD PREPROCEDURE DIAGNOSIS Atrial fibrillation with concern for sick sinus syndrome. POSTPROCEDURE DIAGNOSIS Successful loop recorder insertion. PROCEDURE PERFORMED 115 minutes moderate IV sedation. Loop recorder insertion. DESCRIPTION OF PROCEDURE After informed consent was obtained a moderate IV sedation was given with 2 mg of Versed and 25 mcg of fentanyl. Next a Zazengo reveal link loop recorder was inserted subcutaneously left chest. The patient tolerated the procedure well without any apparent complications. Tachybrady pause atrial fibrillation detection was enabled. The initial R-wave was 0.55 mV. The serial number was [id number]. MD BUBBA Alcaraz/tanvi /8:49 AM /7:32 AM
== END 2016-12-12 09:40 | disposition home or self-care (01) ==
LOC: HDOC 05:26 → HDIC 05:27 → HDOC 09:40
PROVIDERS: ATTEND Nuclear Medicine Nuclear Cardiology
DX: R55 Syncope and collapse (principal); I48.91 Unspecified atrial fibrillation; I49.5 Sick sinus syndrome
CPT/HCPCS: 33282; C1764; J0690; J2250; J3010

== ENCOUNTER 2018-02-15 18:34 | Observation (INO) ==
--- NOTE | 2018-02-15 19:26 | ED ---
HPI General Chief complaint: Hypertension Stated complaint: High BP Time Seen by Provider: 02/15/18 19:09 Source: patient Limitations: no limitations History of Present Illness HPI narrative: The patient is an 82 year old male who presents to the [facility] emergency department with a history of elevated blood pressure that he first began to notice in the afternoon today. He reports that he has been having difficulty with high blood pressure earlier in the week and was evaluated on Thursday in the emergency department regarding this. He reports that his losartan was increased. He reports that he started the increased dose of losartan on Thursday. The patient had his dose increased from 1-1/2 tablets of 25 mg losartan daily to 75 mg, 3 tablets. Patient reports that he has not established a follow-up appointment with his ladies underwear operator, Dr. Long. On further questioning, the patient reports that 2-3 months ago his metoprolol that is 25 mg twice a day was decreased to a dose of 1 pill once a day. He is unsure why. The patient reports that earlier today when he noticed that his blood pressure was at its highest at a systolic of 196 he did have lightheaded sensation, however otherwise he denies having any recurrent double vision, headache, chest pain, chest pressure, shortness of breath, numbness or tingling to the extremities, weakness of the extremities, facial droop, slurred speech, or other vision changes. On review of systems otherwise, the patient denies having any known recent fevers, cough, congestion, neck pain, abdominal pain, vomiting, diarrhea, or urinary symptoms, or vertigo. Related Data Home Medications Medication Instructions Recorded Confirmed allopurinol 100 mg PO BID 02/12/18 02/15/18 apixaban [Eliquis] 5 mg PO BID 02/12/18 02/15/18 hydrochlorothiazide 25 mg PO DAILY 02/12/18 02/15/18 losartan 75 mg PO DAILY 02/12/18 02/15/18 isosorbide mononitrate 30 mg PO DAILY 02/15/18 02/15/18 Allergies Allergy/AdvReac Type Severity Reaction Status Date / Time apple Allergy Severe tongue Verified 02/12/18 08:39 swells [place] [employer]ivatives Allergy Severe swelling Verified 02/12/18 08:39 clopidogrel Allergy Severe swelling Verified 02/12/18 08:39 fructose Allergy Severe swelling Verified 02/12/18 08:39 peach Allergy Severe tongue Verified 02/12/18 08:39 swells pear Allergy Severe tongue Verified 02/12/18 08:39 swells codeine Allergy Intermediate severe Verified 02/12/18 08:39 headaches Review of Systems ROS: all other systems reviewed are negative [facility] Medical History Medical History Afib (Acute) HBP (high blood pressure) (Acute) HBP (high blood pressure) (Acute) Heart disease (Acute) Hx of deep venous thrombosis (Acute) Rectal cancer (Acute) Surgical History Surgical History Hx of appendectomy (Acute) Hx of tonsillectomy (Acute) Social History Social History Substance History: No History of Abuse Second Hand Smoke Exposure: No Smoking Status: Never smoker How Often Do You Have a Drink Containing Alcohol: Never Immunization History Tetanus Immunization: Unsure Hx Influenza Vaccine This Season: Yes Exam Const General: cooperative, no acute distress and well developed Nutritional Appearance: well nourished Orientation: alert, awake and oriented x3 HENMT Head: normocephalic and atraumatic Nose: no nasal discharge and no epistaxis Mouth: moist mucous membranes Throat: posterior oropharynx normal and uvula midline Eyes Sclera: normal sclerae Pupils: PERRL EOM: EOM intact bilaterally Neck Neck: no meningeal signs, trachea midline and no JVD Resp Effort & Inspection: no use of accessory muscles Auscultation: clear to auscultation bilaterally Cardio Rate: regular rate Rhythm: regular rhythm Heart Sounds: no gallops, no murmurs and no rubs GI Inspection: non-distended Palpation: soft, no hepatosplenomegaly and nontender Auscultation: normal bowel sounds Back/Spine/Pelvis Back: no CVA tenderness Skin General: dry skin (warm) Neuro General: alert, awake and oriented x3 Cranial Nerves: CN's II-XI intact bilaterally Speech: speech normal Motor: strength 5/5 throughout and no movement abnormalities noted Sensory Exam: no sensory deficits noted Extrem General: normal to inspection (No calf tenderness on palpation.), no clubbing, no cyanosis and edema (Trace pedal edema bilaterally.) Laterality: bilaterally Psych Mood: congruent mood Affect: normal affect Judgment: judgment good Course Consultations Consultation #1: The patient's case including history, pertinent physical examination findings, and laboratory studies were discussed with Dr. Solis. It was agreed that the patient would be admitted to the hospitalist service. Time: 23:21 Initial Documented Vital Signs Temperature 98.6 F 02/15/18 18:45 Pulse Rate 67 02/15/18 18:45 Respiratory Rate 12 02/15/18 18:45 Blood Pressure 176/81 H 02/15/18 18:45 Pulse Oximetry 97 02/15/18 18:45 Last Documented Vital Signs Temperature 98.6 F 02/15/18 18:45 Pulse Rate 60 02/15/18 21:17 Respiratory Rate 16 02/15/18 21:17 Blood Pressure 164/71 H 02/15/18 21:17 Pulse Oximetry 97 02/15/18 21:17 Medical Decision Making MDM Narrative Medical decision making narrative: During the course of the patient's emergency department visit, the patient's history, examination, and differential diagnosis were reviewed with the patient. The patient was placed on a cardiac nurse practitioner with oximetry and frequent blood pressure monitoring. The patient had IV access obtained and blood work sent for analysis. A diagnostic evaluation was started regarding the patient's recurrent hypertension. The patient was also diagnosed as being dehydrated during his last emergency department visit. He reports that he has been pushing his fluid intake and believes that this is improved.The patient's blood pressure will be monitored closely, however I am hesitant to make any further adjustments of the patient's blood pressure medication as he only recently started the new regimen of increasing his losartan by double dose Thursday. Orthostatic vital signs were done and negative. The patient was initially provided labetalol 5 mg IV x1. The patient's diagnostic studies are remarkable for a white count of 5.5, hemoglobin 13.9, platelets 169 with 77.2, monocytes 9.6, PT 12 chemistries remarkable for a sodium of 126 which has decreased from 131 on February 12 and will be monitored closely, chloride 94, GFR of 60, CPK 345 with a normal MB percent, troponin I is 0.03. A delta troponin will be ordered. The patient denies having any chest pain or shortness of breath. I reviewed the patient's medication record and the patient is on hydrochlorothiazide which could be contributing to the patient's hyponatremia. The patient was also told on his last evaluation that he was dehydrated and has been drinking extra water. The patient is encouraged to follow-up with his primary care physician and ladies underwear operator closely for a repeat evaluation of his sodium level and consideration of discontinuing the hydrochlorothiazide if this persists. The patient's repeat troponin is elevated at 0.14. The patient denies having any chest pain or shortness of breath, however he reports that he did have lightheaded sensation earlier today and has been suffering with persistently elevated blood pressure. The patient continued to be hypertensive although less severely compared to prior levels on first arrival. The patient was given nitroglycerin 1 inch of paste to the chest wall. The patient was given 1 low- dose aspirin p.o. as he is on Eliquis because of a history of atrial fibrillation. The patient will be admitted to the hospital for continued evaluation and treatment of elevated troponin. The last stress test that I am aware of that was mentioned in the record was prior to his admission in October 2016. The patient's results were discussed with the patient, including the plan of care. I explained that further testing and/ or monitoring is indicated based on the patient's history, examination, and/ or laboratory findings. Therefore, I recommended admission for additional evaluation. The patient expressed understanding and was agreeable with this plan. The patient was admitted to the hospital in stable condition and sent to a bed under the care of the [facility] service. Medical Screen Exam Complete: Yes Emergency Medical Condition: Yes Differential Diagnosis Differential Diagnosis: Orthostasis, versus poorly controlled hypertension, versus acute coronary syndrome, versus Lab Data Result diagrams: 02/15/18 19:42 02/15/18 19:42 Lab Results 02/15/18 02/15/18 02/15/18 Range/Units 19:42 19:42 22:29 WBC 5.5 (4.0-11.0) th/mm3 RBC 4.38 L (4.50-5.90) mil/mm3 Hgb 13.9 (13.0-17.0) gm/dL Hct 40.9 (39.0-51.0) % MCV 93.3 (80.0-100.0) fL MCH 31.6 (27.0-34.0) pg MCHC 33.9 (32.0-36.0) % RDW 13.4 (11.6-17.2) % Plt Count 169 (150-450) th/mm3 MPV 8.2 (7.0-11.0) fL Neut % (Auto) 77.2 H (16.0-70.0) % Lymph % (Auto) 11.8 (9.0-44.0) % [place] % (Auto) 9.6 H (0.0-8.0) % Eos % (Auto) 0.8 (0.0-4.0) % Baso % (Auto) 0.6 (0.0-2.0) % Neut # (Auto) 4.3 (1.8-7.7) th/mm3 Lymph # (Auto) 0.6 L (1.0-4.8) th/mm3 [place] # (Auto) 0.5 (0.0-0.9) th/mm3 Eos # (Auto) 0.0 (0.0-0.4) th/mm3 Baso # (Auto) 0.0 (0.0-0.2) th/mm3 WBC Differential . Differential Comment Auto diff final Sodium 126 L (136-145) meq/L Potassium 3.8 (3.5-5.1) meq/L Chloride 94 L (98-107) meq/L Carbon Dioxide 23.4 (21.0-32.0) meq/L Anion Gap 9 (5-15) meq/L BUN 13 (7-18) mg/dL Creatinine 1.17 (0.60-1.30) mg/dL Estimated GFR 60 L (>89) mL/min Random Glucose 105 (74-106) mg/dL Calcium 9.1 (8.5-10.1) mg/dL Total Creatine Kinase 345 H (39-308) U/L CK-MB (CK-2) 7.1 H (0.5-3.6) ng/mL CK-MB (CK-2) % 2.1 (0.0-4.0) % Troponin I 0.03 0.14 H (0.02-0.05) ng/mL ECG Data Attestation: I personally reviewed and interpreted this ECG as follows: Prior ECG tracings: available for review Interpretation: The patient had an EKG done on arrival that shows a sinus rhythm heart rate is 61,QRS duration is 190 ms, QTC is 480 ms. This is compared to February 12 EKG and no acute changes are noted. Discharge Plan Discharge Disposition Patient Disposition: 30 Still Patient Discharge Condition Condition: Stable Discharge Details Diagnosis: Hypertension, Hyponatremia, Elevated troponin I level Physicians Team ED Provider: Holli Rodarte Primary Care Provider: UNKNOWN, Rxs /Orders / Referrals /Forms Prescriptions: No Action allopurinol 100 mg Tablet 100 mg PO BID RF: 0 losartan 25 mg Tablet 75 mg PO DAILY RF: 0 hydrochlorothiazide 25 mg Tablet 25 mg PO DAILY RF: 0 apixaban [Eliquis] 5 mg Tablet 5 mg PO BID RF: 0 isosorbide mononitrate 30 mg Tablet Extended Release 24 Hr 30 mg PO DAILY RF: 0 Referrals: Primary Care Provider [Outside] - 1 Day Lei Anderson MD [Physician] - 2 Days Discharge Instructions Additional Instructions: The patient has hyponatremia (a low sodium) that was noted during this emergency department visit. He is instructed regarding the importance of close follow-up with his ladies underwear operator or his primary care physician for repeat evaluation. He is on a medication that could be contributing to this hydrochlorothiazide. Discharge Interventions Interventions: Vital Signs Last Done: 02/15/18 23:19 Status ED Status: In Room
[2018-02-15 20:03] LABS: Baso % (Auto) 0.6 % (0.0-2.0); Eos % (Auto) 0.8 % (0.0-4.0); Hematocrit 40.9 % (39.0-51.0); Hemoglobin 13.9 gm/dL (13.0-17.0); Lymph # (Auto) 0.6 th/mm3 (1.0-4.8); Lymph % (Auto) 11.8 % (9.0-44.0); Mean Corpuscular HGB Conc 33.9 % (32.0-36.0); Mean Corpuscular Hemoglobin 31.6 pg (27.0-34.0); Mean Corpuscular Volume 93.3 fL (80.0-100.0); Mean Platelet Volume 8.2 fL (7.0-11.0); Mono # (Auto) 0.5 th/mm3 (0.0-0.9); Mono % (Auto) 9.6 % (0.0-8.0); Neut # (Auto) 4.3 th/mm3 (1.8-7.7); Neut % (Auto) 77.2 % (16.0-70.0); Platelet Count 169 th/mm3 (150-450); Red Blood Count 4.38 mil/mm3 (4.50-5.90); Red Cell Distribution Width 13.4 % (11.6-17.2); White Blood Count 5.5 th/mm3 (4.0-11.0)
[2018-02-15 20:17] LABS: Calcium 9.1 mg/dL (8.5-10.1); Carbon Dioxide 23.4 meq/L (21.0-32.0); Potassium 3.8 meq/L (3.5-5.1)
[2018-02-15 20:21] LABS: Troponin I 0.03 ng/mL (0.02-0.05)
[2018-02-15 20:33] LABS: CKMB Percent 2.1 % (0.0-4.0); Creatine Kinase MB 7.1 ng/mL (0.5-3.6)
[2018-02-15] MEDS ORDERED: Labetalol HCl Inj 100 MG/20 ML Vial IV.PUSH ONE (20:54)
[2018-02-15] MEDS ORDERED: Bisacodyl 10 MG Supp RECTAL PRN (23:28)
[2018-02-16 01:08] LABS: Troponin I 0.17 ng/mL (0.02-0.05)
[2018-02-16 01:21] LABS: CKMB Percent 2.1 % (0.0-4.0); Creatine Kinase MB 6.6 ng/mL (0.5-3.6)
[2018-02-16] MEDS: Isosorbide Mononitrate 30 MG ER 24HR Tablet (Imdur) PO SCH (06:37)
[2018-02-16 07:20] LABS: Baso # (Auto) 0.1 th/mm3 (0.0-0.2); Baso % (Auto) 0.9 % (0.0-2.0); Eos # (Auto) 0.1 th/mm3 (0.0-0.4); Hematocrit 40.6 % (39.0-51.0); Hemoglobin 14.1 gm/dL (13.0-17.0); Lymph # (Auto) 0.8 th/mm3 (1.0-4.8); Lymph % (Auto) 13.8 % (9.0-44.0); Mean Corpuscular HGB Conc 34.7 % (32.0-36.0); Mean Corpuscular Hemoglobin 32.1 pg (27.0-34.0); Mean Corpuscular Volume 92.3 fL (80.0-100.0); Mean Platelet Volume 8.8 fL (7.0-11.0); Mono # (Auto) 0.6 th/mm3 (0.0-0.9); Mono % (Auto) 10.1 % (0.0-8.0); Neut # (Auto) 4.6 th/mm3 (1.8-7.7); Neut % (Auto) 74.2 % (16.0-70.0); Platelet Count 178 th/mm3 (150-450); Red Blood Count 4.39 mil/mm3 (4.50-5.90); Red Cell Distribution Width 13.7 % (11.6-17.2); White Blood Count 6.1 th/mm3 (4.0-11.0)
[2018-02-16] MEDS ORDERED: Heparin Drip 25,000 UNIT/250 ML BAG IV.CONT PRN (07:32)
[2018-02-16 07:46] LABS: Albumin 3.5 g/dL (3.4-5.0); Anion Gap 10 meq/L (5-15); Aspartate Aminotransferase 32 U/L (15-37); Blood Urea Nitrogen 11 mg/dL (7-18); Calcium 9.6 mg/dL (8.5-10.1); Carbon Dioxide 23.8 meq/L (21.0-32.0); Chloride 95 meq/L (98-107); Glomerular Filtration Rate 61 mL/min (>89); Glucose,Random 91 mg/dL (74-106); Potassium 3.6 meq/L (3.5-5.1); Sodium 129 meq/L (136-145)
[2018-02-16 07:50] LABS: Alanine Aminotransferase 29 U/L (12-78); Alkaline Phosphatase 73 U/L (45-117); Total Protein 7.1 g/dL (6.4-8.2)
[2018-02-16] MEDS: Metoprolol Tartrate 25 MG Tablet PO SCH ×2 (08:56→21:12)
[2018-02-16] MEDS: amLODIPine 5 MG Tablet PO SCH (08:57)
[2018-02-16] MEDS: Allopurinol 100 MG Tablet PO SCH ×2 (08:57→21:11)
[2018-02-16 09:04] LABS: INR 1.1 Ratio
[2018-02-16] MEDS ORDERED: Regadenoson Inj 0.4 MG/5 ML Syringe IV.PUSH ONE (10:15)
--- NOTE | 2018-02-16 11:17 | MB ---
cc: Sarbjit Rodarte MD DATE: 02/16/2018 CHIEF COMPLAINT: Elevated blood pressure readings with lightheadedness. HISTORY OF PRESENT ILLNESS: This is an 82-year-old man whom I am consulted for because of an elevated troponin. The patient has a longstanding history of hypertension going back to his 20s. He has known atherosclerotic disease. He had a stent placed around 1994. He does not remember much about it. I asked him if he had chest pain beforehand and he thought he did. That has not been clarified. Denies any chest pain now. He does have atherosclerotic disease. He has had carotid Doppler studies showing bulky plaque bilaterally, but not significant. His last nuclear stress test was 09/30/2016, which showed a mostly fixed inferior defect. He has not had any repeat angiography studies. The patient is known to have longstanding hypertension. He has had intermittent problems with blood pressure back in 09/2016 when amlodipine was added. He had a syncopal event. His blood pressure medications had to be readjusted. He was just in the ER 02/12/2018 with complaints of dizziness and at that time his blood pressure was 175/81 with a pulse of 65. His lab work was abnormal with a low serum sodium. He was told he was dehydrated and to increase his fluid intake. Sodium was 131 on Thursday and now it is 126. He is known to be on a thiazide-type diuretic. The patient was also told he says to take his blood pressure multiple times a day. On Thursday, he was taking his blood pressure and just kept going up and up and up and up, according to him. He finally decided to come into the hospital by calling 911 around 5 p.m. His blood pressure at 6:45 p.m. yesterday was 176/81 with a pulse of 67. Interestingly, the patient has not been to his primary care doctor in 6 months. His spouse in December and he lives alone. He has very little to keep himself occupied with, basically reads books and watches TV. He has played golf in the past, but not lately. I cannot elicit any anginal-type symptoms from him. He denies any chest discomfort, chest tightness. He said he did not feel well when his blood pressure. In asking him more details, he just said he got kind of a lightheaded, dizzy feeling, but things were not actually spinning. I did not get any history that sounded like angina. PAST MEDICAL HISTORY: 1. Includes suspected paroxysmal atrial fibrillation. This is all based on rhythm strips recorded by EMS on the way to the hospital 10/23/2016. The strips are not available in the chart to confirm. He had a loop recorder inserted by Dr. Hodges and best as I can tell, he has had no documentation of atrial fibrillation since then. 2. Coronary artery disease. He had a stent in 1994. See discussion above. 3. Rectal cancer, status post chemotherapy and radiation surgery. He had a low anterior resection 03/20/2015 and then closure of the ileostomy 06/19/2015. 4. On a routine CT scan 04/25/2015, he was discovered to have bilateral pulmonary emboli. He was asymptomatic. He also had an asymptomatic left lower extremity DVT. He was treated with oral agents. 5. History of gout. 6. Hyperlipidemia. 7. Longstanding hypertension and is documented to have left ventricular hypertrophy on an echocardiogram 09/25/2016. 8. Mild aortic valve sclerosis based on an echocardiogram from 09/2016. 9 Squamous cell skin cancers. 10. Hard of hearing. 11. Polio as a child. PAST SURGICAL HISTORY: Includes appendectomy, cataract surgery, colon surgery 03/20/2015 with an ileostomy reversal 06/13/2015, stent in 1994, tonsillectomy was 194, vasectomy 1974. MEDICATIONS: 1. Hydrochlorothiazide 25 mg daily. 2. Imdur 30 mg daily. 3. Metoprolol 25 mg p.o. b.i.d. 4. Losartan, which has been increased now to 75 mg daily. ALLERGIES: PAST USE OF CLOPIDOGREL CAUSED TONGUE SWELLING. PAST USE OF CODEINE CAUSED HEADACHES. FRESH FRUIT CAUSES SWELLING OF HIS PALATE. FAMILY HISTORY: Unknown because he is adopted. SOCIAL HISTORY: He used to have 2 alcoholic drinks a day. Does not drink like that now. Has never smoked. 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 He has 1 daughter living in [place]. He had 1 son who of heart problems in his 40s. He is as described above. REVIEW OF SYSTEMS: Otherwise noncontributory. PHYSICAL EXAMINATION: GENERAL: Well-developed, well-nourished, elderly man in no acute distress. VITAL SIGNS: His blood pressure is serially mildly elevated. HEENT: Unremarkable. NECK: No JVD. No bruits appreciated. CHEST: Clear to auscultation. CARDIOVASCULAR: Shows a normal PMI. Normal first and second heart sounds, regular rate and rhythm. Grade 1/6 systolic flow murmur. ABDOMEN: Soft, nontender. No masses. EXTREMITIES: No clubbing, cyanosis or edema. Pulses are intact. DIAGNOSTIC DATA: EKG shows sinus rhythm with left bundle branch block. LABORATORY DATA: His laboratories show a sodium level of 126, BUN 13, creatinine 1.17. Troponin was 0.02 on 02/12/2018. It has risen to 0.14 last night and 0.17 this morning. He had a head CT on 02/12/2018 that was negative and a chest x-ray on 02/12/2018 showing no acute disease. IMPRESSION: 1. Elevated troponin with a history of known coronary artery disease. He has no symptoms of angina that I can elicit. The troponin rise is fairly small. He could have subendocardial ischemia just from uncontrolled hypertension in the setting of left ventricular hypertrophy. Alternatively, he could have a silent asymptomatic coronary event. I discussed this in detail with the patient in terms of blowing it off, doing a nuclear stress test, or doing a catheterization. We decided we are going to start with a nuclear stress test and go from there. 2. Hyponatremia, likely due to his thiazide diuretic with excess water consumption. We will discontinue hydrochlorothiazide. 2. Longstanding hypertension. We will recraft his regimen by introducing 2.5 mg dose of amlodipine and getting rid of the hydrochlorothiazide. Will reduce the metoprolol to 12.5 b.i.d. because his heart rates are running in the 60s. 3. History of paroxysmal atrial fibrillation. This is based on a single rhythm strip by EMS 10/23/2017 with no subsequent documentation of atrial fibrillation. I am going to hold the Eliquis at this point in case he needs a diagnostic heart catheterization. 4. History of asymptomatic deep venous thrombosis and pulmonary embolism 04/25/2015. This was oncological related, because he was in the middle of treatment for rectal cancer. 5. Chronic left bundle branch block. 6. Bulky carotid plaquing, but not significant by previous Doppler. PLAN: The patient is having a nuclear stress test this morning. I am stopping his thiazide diuretic and replacing with a low dose of amlodipine. I am olding the Eliquis. Further therapy to be determined. MD YAMILETH Manzano/heriberto , 08:55 AM , 09:13 AM
--- NOTE | 2018-02-16 11:29 | NM ---
EXAM DATE: 02/16/2018 9:20 AM EDT AGE/SEX: 82 years / Male INDICATIONS:Coronary artery disease. Atrial fibrillation High blood pressure and lightheadedness. CLINICAL DATA: This is the patient's initial encounter. Patient reports that signs and symptoms have been present for 1 day and indicates a pain score of 0/10. MEDICAL/SURGICAL HISTORY: Carcinoma, rectal. Hypertension. Deep venous thrombosis. Appendecto my. Tonsillectomy. COMPARISON: No prior exams available for comparison. DOSE: 8.2 mCi Tc 99m Myoview at rest 26.3 mCi [id number] at stress 0.4 mg Lexiscan STRESS SYMPTOMS: None. EJECTION FRACTION: > 70 % TECHNIQUE: The patient underwent pharmacologic stress with infusion of prescribed dose. Continuous ECG tracing was monitored during stress. Gated SPECT imaging was performed after stress and conventi onal SPECT imaging was performed at rest. The examination was performed on a SPECT/CT scanner, both attenuation and non-corrected datasets were reviewed. FINDINGS: Distribution: The maximum perfused segment at stress is in the lateral wall. Perfusion Study: The pattern of perfusion at stress is within normal limits. Gated Study: There are intact wall motion and wall thickening without hypokinetic or dyskinetic segm ents. The ejection fraction is calculated at > 70%. RISK CATEGORY: Intermediate (1-3 % Annual Mortality Rate) CONCLUSION: 1. 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 No significan t reversibility to suggest ischemia. Electronically signed by: Sigifredo Mireles MD 02/16/2018 11:27 AM EDT
[2018-02-16 12:06] LABS: Troponin I 0.05 ng/mL (0.02-0.05)
--- NOTE | 2018-02-16 12:32 | P.HP ---
History of Present Illness Service: Hospitalist Primary Care Physician: UNKNOWN Chief Complaint: High blood pressure, lightheadedness History of Present Illness: This is a 82-year-old male with past medical history significant for hypertension, atrial fibrillation, CAD with hx of previous cardiac stent in 1994 , history of rectal cancer s/p resection, chemotherapy and XRT and hx of DVT/PE who presents to [facility] with complaints of lightheadedness and elevated blood pressure. Patient states that he has been having difficulty with high blood pressure for the past week. Patient states that he was in the ED on Thursday02/12/18 with complaints of dizziness and was found to have a BP of 175/81. He had an abnormal serum level of 131 and was told to increase his water intake which he did drinking 12 glasses of water a day. His losartan dose was increased from 25mg to 75mg. He states that on Thursday, his blood pressure keep going up and he felt lightheaded. He states that at its highest point, the systolic was 196. He denies any associated headache, vision changes, numbness/tingling, weakness, slurred speech, chest pain, palpitation or dyspnea. He decided to call 911. His recently lost his 6 weeks ago and currently lives alone. He has a previous history of loop recorder placement following a syncopal episode. In the ED, patient had elevated BP 189/85. He was noted to have an elevated troponin of 0.14 and 0.17. His sodium level was 126. His urine osmolality was 150. Review of Systems All other systems reviewed negative except as stated in HPI PMFSH - History History Provided By: Patient - Medical History Medical History: Medical History (Last Reviewed 02/16/18 @ 12:12 by Sada Crowder) Rectal cancer Afib HBP (high blood pressure) HBP (high blood pressure) Heart disease Hx of deep venous thrombosis - Surgical History Surgical History: Surgical History (Last Updated 02/16/18 @ 12:12 by Sada Crowder) H/O vasectomy History of colon surgery Hx of cataract surgery Hx of appendectomy Hx of tonsillectomy - Family History Family History: Family History (Last Updated 02/16/18 @ 12:04 by Sada Crowder) Other Family history not known due to adoption - Social History I have reviewed the patient's Social History: Yes - Tobacco History Second Hand Smoke Exposure: No Smoking Status: Never smoker - Alcohol History How Often Do You Have a Drink Containing Alcohol: Never - Substance Use History Substance History: No History of Abuse - Immunization History Tetanus Immunization: Unsure Hx Influenza Vaccine This Season: Yes Medications and Allergies Active Medications: Active Medications Al Hydroxide/Mg Hydroxide (Milk Of Magnesia Liq) 30 ml PO Q12H PRN PRN Reason: Mild Constipation Allopurinol (Zyloprim) 100 mg PO BID [facility] Last Admin: 02/16/18 08:57 Dose: 100 mg Amlodipine Besylate (Norvasc) 2.5 mg PO DAILY [facility] Last Admin: 02/16/18 08:57 Dose: 2.5 mg Bisacodyl (Dulcolax Supp) 10 mg RECTAL DAILY PRN PRN Reason: SEVERE CONSITIPATION Enalaprilat (Vasotec Inj) 1.25 mg IV.PUSH Q6H PRN PRN Reason: SBP>160, DBP>90 Isosorbide Mononitrate (Imdur) 30 mg PO DAILY@0700 [facility] Last Admin: 02/16/18 06:37 Dose: 30 mg Lactulose (Lactulose Liq) 30 ml PO DAILY PRN PRN Reason: SEVERE CONSITIPATION Losartan Potassium (Cozaar) 50 mg PO DAILY [facility] Last Admin: 02/16/18 08:57 Dose: 50 mg Metoprolol Tartrate (Lopressor) 12.5 mg PO BID [facility] Last Admin: 02/16/18 08:56 Dose: 12.5 mg Miscellaneous (Pill Splitter) 1 each OTHER DAILY [facility] Sennosides (Senokot) 17.2 mg PO Q12H PRN PRN Reason: Moderate Constipation Allergies Allergy/AdvReac Type Severity Reaction Status Date / Time apple Allergy Severe tongue Verified 02/12/18 08:39 swells [place] [employer] Allergy Severe swelling Verified 02/12/18 08:39 clopidogrel Allergy Severe swelling Verified 02/12/18 08:39 fructose Allergy Severe swelling Verified 02/12/18 08:39 peach Allergy Severe tongue Verified 02/12/18 08:39 swells pear Allergy Severe tongue Verified 02/12/18 08:39 swells codeine Allergy Intermediate severe Verified 02/12/18 08:39 headaches Home Medications Medication Instructions Recorded Confirmed Type allopurinol 100 mg PO BID 02/12/18 02/15/18 History apixaban [Eliquis] 5 mg PO BID 02/12/18 02/15/18 History hydrochlorothiazide 25 mg PO DAILY 02/12/18 02/15/18 History losartan 75 mg PO DAILY 02/12/18 02/15/18 History isosorbide mononitrate 30 mg PO DAILY 02/15/18 02/15/18 History Exam Vital signs: Vital Signs 02/15/18 18:45 02/15/18 19:22 02/15/18 20:48 Temperature 98.6 F Pulse Rate 67 68 62 Respiratory Rate 12 17 18 Blood Pressure 176/81 H 189/85 H 170/73 H Pulse Oximetry 97 97 98 02/15/18 21:17 02/15/18 23:19 02/16/18 02:10 Temperature 97.8 F Pulse Rate 60 64 74 Respiratory Rate 16 18 20 Blood Pressure 164/71 H 166/77 H 129/71 Pulse Oximetry 97 96 95 02/16/18 04:00 02/16/18 08:00 Temperature 97.5 F L 98.9 F Pulse Rate 77 82 Respiratory Rate 18 18 Blood Pressure 158/76 H 137/73 Pulse Oximetry 93 L 94 L Intake & Output 02/15/18 02/16/18 02/16/18 18:59 06:59 18:59 Weight 79.379 kg Other: # Voids 2 Date of Last Bowel Movement 02/16/18 Narrative: GENERAL: WDWN male patient, in no acute distress. Awake and alert. Appears comfortable, sitting in bedside chair. SKIN: Warm and dry. HEAD: Atraumatic. Normocephalic. EYES: Pupils equal and round. No scleral icterus. No injection or drainage. ENT: No nasal bleeding or discharge. Mucous membranes pink and moist. NECK: Trachea midline. CARDIOVASCULAR: Regular rate and rhythm. No murmur auscultated. RESPIRATORY: No accessory muscle use. Clear to auscultation. Breath sounds equal bilaterally. GASTROINTESTINAL: Abdomen soft, non-tender, nondistended. +BS. MUSCULOSKELETAL: Extremities without clubbing, cyanosis, or edema. No obvious deformities. NEUROLOGICAL: Awake and alert. No obvious cranial nerve deficits. Motor grossly within normal limits. Able to move all extremities spontaneously. Normal speech. PSYCHIATRIC: Appropriate mood and affect; insight and judgment normal. Results - Labs CBC & Chem 7: 02/16/18 05:40 02/16/18 05:40 Labs: Laboratory Results - last 24 hr 02/15/18 02/15/18 02/15/18 19:42 19:42 19:42 WBC 5.5 RBC 4.38 L Hgb 13.9 Hct 40.9 MCV 93.3 MCH 31.6 MCHC 33.9 RDW 13.4 Plt Count 169 MPV 8.2 Neut % (Auto) 77.2 H Lymph % (Auto) 11.8 [place] % (Auto) 9.6 H Eos % (Auto) 0.8 Baso % (Auto) 0.6 Neut # (Auto) 4.3 Lymph # (Auto) 0.6 L [place] # (Auto) 0.5 Eos # (Auto) 0.0 Baso # (Auto) 0.0 WBC Differential . Differential Comment Auto diff final PT INR APTT Sodium 126 L Potassium 3.8 Chloride 94 L Carbon Dioxide 23.4 Anion Gap 9 BUN 13 Creatinine 1.17 Estimated GFR 60 L POC Glucose Random Glucose 105 Osmolality Calcium 9.1 Total Bilirubin AST ALT Alkaline Phosphatase Total Creatine Kinase 345 H CK-MB (CK-2) 7.1 H CK-MB (CK-2) % 2.1 Troponin I 0.03 B-Natriuretic Peptide 90 Total Protein Albumin Urine Osmolality Ur Random Sodium 02/15/18 02/16/18 02/16/18 22:29 00:25 00:28 WBC RBC Hgb Hct MCV MCH MCHC RDW Plt Count MPV Neut % (Auto) Lymph % (Auto) [place] % (Auto) Eos % (Auto) Baso % (Auto) Neut # (Auto) Lymph # (Auto) [place] # (Auto) Eos # (Auto) Baso # (Auto) WBC Differential Differential Comment PT INR APTT Sodium Potassium Chloride Carbon Dioxide Anion Gap BUN Creatinine Estimated GFR POC Glucose Random Glucose Osmolality Calcium Total Bilirubin AST ALT Alkaline Phosphatase Total Creatine Kinase 314 H CK-MB (CK-2) 6.6 H CK-MB (CK-2) % 2.1 Troponin I 0.14 H 0.17 H B-Natriuretic Peptide Total Protein Albumin Urine Osmolality 150 L Ur Random Sodium 02/16/18 02/16/18 02/16/18 00:28 05:40 05:40 WBC 6.1 RBC 4.39 L Hgb 14.1 Hct 40.6 MCV 92.3 MCH 32.1 MCHC 34.7 RDW 13.7 Plt Count 178 MPV 8.8 Neut % (Auto) 74.2 H Lymph % (Auto) 13.8 [place] % (Auto) 10.1 H Eos % (Auto) 1.0 Baso % (Auto) 0.9 Neut # (Auto) 4.6 Lymph # (Auto) 0.8 L [place] # (Auto) 0.6 Eos # (Auto) 0.1 Baso # (Auto) 0.1 WBC Differential . Differential Comment Auto diff final PT INR APTT Sodium 129 L Potassium 3.6 Chloride 95 L Carbon Dioxide 23.8 Anion Gap 10 BUN 11 Creatinine 1.15 Estimated GFR 61 L POC Glucose Random Glucose 91 Osmolality 273 L Calcium 9.6 Total Bilirubin 0.6 AST 32 ALT 29 Alkaline Phosphatase 73 Total Creatine Kinase CK-MB (CK-2) CK-MB (CK-2) % Troponin I B-Natriuretic Peptide Total Protein 7.1 Albumin 3.5 Urine Osmolality Ur Random Sodium 49 02/16/18 02/16/18 02/16/18 08:16 08:16 10:21 WBC RBC Hgb Hct MCV MCH MCHC RDW Plt Count MPV Neut % (Auto) Lymph % (Auto) [place] % (Auto) Eos % (Auto) Baso % (Auto) Neut # (Auto) Lymph # (Auto) [place] # (Auto) Eos # (Auto) Baso # (Auto) WBC Differential Differential Comment PT 11.0 INR 1.1 APTT 34.0 H Sodium Potassium Chloride Carbon Dioxide Anion Gap BUN Creatinine Estimated GFR POC Glucose 161 H Random Glucose Osmolality Calcium Total Bilirubin AST ALT Alkaline Phosphatase Total Creatine Kinase CK-MB (CK-2) CK-MB (CK-2) % Troponin I 0.09 H B-Natriuretic Peptide Total Protein Albumin Urine Osmolality Ur Random Sodium - Imaging Impressions Myocardial Perfusion Scan Nuc Med 02/16/18 00:00 CONCLUSION: 1. 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 No significant reversibility to suggest ischemia. Caprini VTE Risk Assessment Caprini VTE Risk Assessment: Moderate/High Risk (score >= 2) Caprini Risk Assessment Model: Point Value = 1 Point Value = 2 Point Value = 3 Point Value = 5 Age 41-60 Minor surgery BMI > 25 kg/m2 Swollen legs Varicose veins or History of unexplained or recurrent spontaneous Oral contraceptives or hormone replacement Sepsis (< 1 month) Serious lung disease, including pneumonia (< 1 month) Abnormal pulmonary function Acute myocardial infarction Congestive heart failure (< 1 month) History of inflammatory bowel disease Medical patient at bed rest Age 61-74 Arthroscopic surgery Major open surgery (> 45 min) Laparoscopic surgery (> 45 min) Malignancy Confined to bed (> 72 hours) Immobilizing plaster cast Central venous access Age >= 75 History of VTE Family history of VTE Factor V Leiden Prothrombin [id number] Lupus anticoagulant Anticardiolipin antibodies Elevated serum homocysteine Heparin-induced thrombocytopenia Other congenital or acquired thrombophilia Stroke (< 1 month) Elective arthroplasty Hip, pelvis, or leg fracture Acute spinal cord injury (< 1 month) Prophylaxis Regimen: Total Risk Factor Score Risk Level Prophylaxis Regimen 0-1 Low Early ambulation 2 Moderate Order ONE of the following: *Sequential Compression Device (SCD) *Heparin 5000 units SQ BID 3-4 Higher Order ONE of the following medications: *Heparin 5000 units SQ TID *Enoxaparin/Lovenox 40 mg SQ daily (WT < 150 kg, CrCl > 30 mL/min) *Enoxaparin/Lovenox 30 mg SQ daily (WT < 150 kg, CrCl > 10-29 mL/min) *Enoxaparin/Lovenox 30 mg SQ BID (WT < 150 kg, CrCl > 30 mL/min) AND/OR *Sequential Compression Device (SCD) 5 or more Highest Order ONE of the following medications: *Heparin 5000 units SQ TID (Preferred with Epidurals) *Enoxaparin/Lovenox 40 mg SQ daily (WT < 150 kg, CrCl > 30 mL/min) *Enoxaparin/Lovenox 30 mg SQ daily (WT < 150 kg, CrCl > 10-29 mL/min) *Enoxaparin/Lovenox 30 mg SQ BID (WT < 150 kg, CrCl > 30 mL/min) AND *Sequential Compression Device (SCD) Assessment and Plan - Plan 82-year-old male with past medical history significant for hypertension, atrial fibrillation, CAD with hx of previous cardiac stent in 1994, history of rectal cancer s/p resection, chemotherapy and XRT and hx of DVT/PE who presents to [facility] with complaints of lightheadedness and elevated blood pressure. Elevated troponins Known hx of CAD s/p remote hx of cardiac stent No anginal symptoms but did have lightheadedness Kenyatta 0.14 -> 0.17 -Consult Cardiology, assistance appreciated -Continue to trend cardiac enzymes -monitor on telemetry Hypertension, poorly controlled -continue patient on home dose of Losartan and Imdur -monitor BP and adjust treatment accordingly Paroxysmal atrial fibrillation, rate controlled -continue patient on Eliquis -monitor HR Hyponatremia -Hold home HCTZ -fluid restriction -monitor sodium level Hyperglycemia no reported hx of diabetes -will obtain HgbA1c level DVT prophylaxis -patient is on Eliquis Code Status: FULL Discussed Condition With: patient, nursing staff, Dr. Aguilar Discharge Planning: Not ready for discharge
[2018-02-16] MEDS ORDERED: Sod Chloride 0.9% Inj 1,000 ML IV.CONT SCH (16:45)
[2018-02-16 17:01] LABS: Hemoglobin A1c 6.2 % (4.3-6.0)
--- NOTE | 2018-02-16 18:17 | ECG ---
Date Performed: 02/15/2018 Time Performed: 20:00:31 PTAGE: 82 years EKG: Sinus rhythm LEFT BUNDLE BRANCH BLOCK Since the previous tracing, no significant change noted ABNORMAL ECG PREVIOUS TRACING : 02/12/2018 08.52 DOCTOR: Tim Desouza Interpretating Date/Time 02/16/2018 18:16:27
--- NOTE | 2018-02-16 18:17 | ECG ---
Date Performed: 02/16/2018 Time Performed: 00:20:24 PTAGE: 82 years EKG: Sinus rhythm LEFT BUNDLE BRANCH BLOCK Since the previous tracing, no significant change noted ABNORMAL ECG PREVIOUS TRACING : 02/15/2018 20.00 DOCTOR: Tim Desouza Interpretating Date/Time 02/16/2018 18:16:36
--- NOTE | 2018-02-16 18:18 | ECG ---
Date Performed: 02/16/2018 Time Performed: 05:38:35 PTAGE: 82 years EKG: Sinus rhythm LEFT BUNDLE BRANCH BLOCK Since the previous tracing, no significant change noted ABNORMAL ECG PREVIOUS TRACING : 02/16/2018 00.20 DOCTOR: Tim Desouza Interpretating Date/Time 02/16/2018 18:16:46
[2018-02-17 05:54] LABS: Calcium 9.4 mg/dL (8.5-10.1); Carbon Dioxide 22.5 meq/L (21.0-32.0); Potassium 3.7 meq/L (3.5-5.1)
[2018-02-17 05:57] LABS: Chol/HDL Ratio 4.04 Ratio; HDL Cholesterol 66.3 mg/dL (40.0-60.0)
[2018-02-17] MEDS: Isosorbide Mononitrate 30 MG ER 24HR Tablet (Imdur) PO SCH (06:15)
[2018-02-17 07:47] VITALS: BP 121/63; PULSE 74; RESP 18; TEMP 98.8; O2SAT 95
[2018-02-17] MEDS: amLODIPine 5 MG Tablet PO SCH (08:25)
[2018-02-17] MEDS: Metoprolol Tartrate 25 MG Tablet PO SCH (08:26)
[2018-02-17] MEDS: Allopurinol 100 MG Tablet PO SCH (08:26)
--- NOTE | 2018-02-17 08:54 | P.PN ---
Subjective Interval history: Follow-up on patient with elevated blood pressure. Patient seen and examined. Patient states he feels well. He denies any dizziness, headache or lightheadedness. He denies any chest pain or shortness of breath. Denies any nausea, vomiting or abdominal pain. Physical Exam Vital signs: Vital Signs 02/16/18 12:00 02/16/18 16:00 02/16/18 20:00 Temperature 98.7 F 98.8 F Pulse Rate 64 67 77 Respiratory Rate 18 18 17 Blood Pressure 137/69 138/66 105/57 L Pulse Oximetry 96 97 95 02/16/18 21:04 02/17/18 00:00 02/17/18 04:00 Temperature 97.8 F 97.4 F L Pulse Rate 71 62 70 Respiratory Rate 16 17 Blood Pressure 119/62 140/67 169/78 H Pulse Oximetry 97 94 L 02/17/18 06:08 02/17/18 07:46 Temperature 98.8 F Pulse Rate 74 Respiratory Rate 18 Blood Pressure 167/79 H 121/63 Pulse Oximetry 95 Intake & Output 02/16/18 02/17/18 02/17/18 18:59 06:59 18:59 Output Total 350 / 350 Balance -350 / -350 Output: Urine 350 / 350 Other: # Voids 2 Date of Last Bowel Movement 02/16/18 02/16/18 Narrative: GENERAL: WDWN male patient, in no acute distress. Awake and alert. SKIN: Warm and dry. HEENT: Atraumatic. Normocephalic. Pupils equal and round. No scleral icterus. No injection or drainage. No nasal bleeding or discharge. Mucous membranes pink and moist. NECK: Trachea midline. CARDIOVASCULAR: Regular rate and rhythm. No murmur auscultated. RESPIRATORY: No accessory muscle use. Clear to auscultation. Breath sounds equal bilaterally. GASTROINTESTINAL: Abdomen soft, non-tender, nondistended. +BS. MUSCULOSKELETAL: Extremities without clubbing, cyanosis, or edema. No obvious deformities. NEUROLOGICAL: Awake and alert. No obvious cranial nerve deficits. Motor grossly within normal limits. Able to move all extremities spontaneously. Normal speech. PSYCHIATRIC: Appropriate mood and affect; insight and judgment normal. Results - Labs CBC & Chem 7: 02/16/18 05:40 02/17/18 04:45 Laboratory Results - last 24 hr 02/16/18 02/16/18 02/16/18 05:40 08:16 08:16 PT 11.0 INR 1.1 APTT 34.0 H Sodium Potassium Chloride Carbon Dioxide Anion Gap BUN Creatinine Estimated GFR POC Glucose Random Glucose Hemoglobin A1c 6.2 H Calcium Total Creatine Kinase Troponin I 0.09 H Triglycerides Cholesterol LDL Cholesterol, Calc HDL Cholesterol Cholesterol/HDL Ratio 02/16/18 02/16/18 02/17/18 10:21 11:25 04:45 PT INR APTT Sodium 131 L Potassium 3.7 Chloride 97 L Carbon Dioxide 22.5 Anion Gap 12 BUN 13 Creatinine 1.28 Estimated GFR 54 L POC Glucose 161 H Random Glucose 85 Hemoglobin A1c Calcium 9.4 Total Creatine Kinase 305 Troponin I 0.05 Triglycerides 124 Cholesterol 268 H LDL Cholesterol, Calc 177 H HDL Cholesterol 66.3 H Cholesterol/HDL Ratio 4.04 - Imaging Impressions Myocardial Perfusion Scan Nuc Med 02/16/18 00:00 CONCLUSION: 1. 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 No significant reversibility to suggest ischemia. Assessment and Plan - Plan 82-year-old male with past medical history significant for hypertension, atrial fibrillation, CAD with hx of previous cardiac stent in 1994, history of rectal cancer s/p resection, chemotherapy and XRT and hx of DVT/PE who presents to [facility] with complaints of lightheadedness and elevated blood pressure. Elevated troponins Known hx of CAD s/p remote hx of cardiac stent No anginal symptoms but did have lightheadedness Kenyatta 0.14 -> 0.17 -Cardiology following, appreciate assistance. MPS without any reversible defect. Discussed with Dr. Rodarte, cleared for discharge on losartan 50 mg daily, metoprolol 12.5 mg twice daily, Imdur 30 mg daily, Norvasc 2.5 mg daily, atorvastatin 10 mg daily and Eliquis. No ASA. -Patient to follow-up with Dr. Long as outpatient. Hypertension, poorly controlled -BP now controlled -Continue on medications as stated above -monitor BP and adjust treatment accordingly Paroxysmal atrial fibrillation, rate controlled -continue patient on Eliquis -monitor HR Hyponatremia Sodium improved, now 131 -discontinue home HCTZ -fluid restriction -monitor sodium level, repeat in next several days as outpatient Dyslipidemia LDL 177 -Started on atorvastatin 10 mg daily per cardiology Hyperglycemia Prediabetes HgbA1c 6.2 -Discussed with patient. Dietitian consulted for diet education. -Recommend patient repeat hemoglobin A1c in 3 months with PCP as outpatient DVT prophylaxis -patient is on Eliquis Discharge patient to home Condition on discharge: Improved Heart healthy diabetic Diet as tolerated Ad Maddison activity Rx written: Norvasc, Metoprolol, Atorvastatin and Losartan Follow-up with primary care physician and java software architect Code Status: FULL Discussed Condition With: Patient, nursing staff, Dr. Aguilar, Dr. Rodarte
--- NOTE | 2018-02-17 09:47 | P.PNCA ---
Subjective Interval history: no angina, no complaints Medications and Allergies Active Medications: Active Medications Al Hydroxide/Mg Hydroxide (Milk Of Magnesia Liq) 30 ml PO Q12H PRN PRN Reason: Mild Constipation Allopurinol (Zyloprim) 100 mg PO BID [facility] Last Admin: 02/17/18 08:26 Dose: 100 mg Amlodipine Besylate (Norvasc) 2.5 mg PO DAILY [facility] Last Admin: 02/17/18 08:25 Dose: 2.5 mg Atorvastatin Calcium (Lipitor) 10 mg PO DAILY [facility] Bisacodyl (Dulcolax Supp) 10 mg RECTAL DAILY PRN PRN Reason: SEVERE CONSITIPATION Sodium Chloride (Ns Inj) 1,000 mls @ 42 mls/hr IV.CONT .[id number] [facility] Last Admin: 02/16/18 18:24 Dose: 42 mls/hr Isosorbide Mononitrate (Imdur) 30 mg PO DAILY@0700 [facility] Last Admin: 02/17/18 06:15 Dose: 30 mg Lactulose (Lactulose Liq) 30 ml PO DAILY PRN PRN Reason: SEVERE CONSITIPATION Losartan Potassium (Cozaar) 50 mg PO DAILY [facility] Last Admin: 02/17/18 08:26 Dose: 50 mg Metoprolol Tartrate (Lopressor) 12.5 mg PO BID [facility] Last Admin: 02/17/18 08:26 Dose: 12.5 mg Miscellaneous (Pill Splitter) 1 each OTHER DAILY [facility] Last Admin: 02/17/18 08:29 Dose: 1 each Potassium Chloride (K-Dur) 20 meq PO ONCE ONE Stop: 02/17/18 09:46 Sennosides (Senokot) 17.2 mg PO Q12H PRN PRN Reason: Moderate Constipation Allergies Allergy/AdvReac Type Severity Reaction Status Date / Time apple Allergy Severe tongue Verified 02/12/18 08:39 swells [place] [employer] Allergy Severe swelling Verified 02/12/18 08:39 clopidogrel Allergy Severe swelling Verified 02/12/18 08:39 fructose Allergy Severe swelling Verified 02/12/18 08:39 peach Allergy Severe tongue Verified 02/12/18 08:39 swells [place] Allergy Severe tongue Verified 02/12/18 08:39 swells codeine Allergy Intermediate severe Verified 02/12/18 08:39 headaches Home Medications Medication Instructions Recorded Confirmed Type allopurinol 100 mg PO BID 02/12/18 02/15/18 History apixaban [Eliquis] 5 mg PO BID 02/12/18 02/15/18 History hydrochlorothiazide 25 mg PO DAILY 02/12/18 02/15/18 History losartan 75 mg PO DAILY 02/12/18 02/15/18 History isosorbide mononitrate 30 mg PO DAILY 02/15/18 02/15/18 History Physical Exam Vital signs: Vital Signs 02/16/18 12:00 02/16/18 16:00 02/16/18 20:00 Temperature 98.7 F 98.8 F Pulse Rate 64 67 77 Respiratory Rate 18 18 17 Blood Pressure 137/69 138/66 105/57 L Pulse Oximetry 96 97 95 02/16/18 21:04 02/17/18 00:00 02/17/18 04:00 Temperature 97.8 F 97.4 F L Pulse Rate 71 62 70 Respiratory Rate 16 17 Blood Pressure 119/62 140/67 169/78 H Pulse Oximetry 97 94 L 02/17/18 06:08 02/17/18 07:46 Temperature 98.8 F Pulse Rate 74 Respiratory Rate 18 Blood Pressure 167/79 H 121/63 Pulse Oximetry 95 Intake & Output 02/16/18 02/17/18 02/17/18 18:59 06:59 18:59 Output Total 350 / 350 Balance -350 / -350 Output: Urine 350 / 350 Other: # Voids 2 Date of Last Bowel Movement 02/16/18 02/16/18 - Constitutional no acute distress - Routine HEENT Exam Head: Present: normocephalic, atraumatic - Routine Neck Exam Absent: JVD - Routine Respiratory Exam Present: CTA bilaterally. Absent: accessory muscle use - Routine Cardiovascular Exam Present: RRR, S1, S2 - Routine Abdominal Exam Present: soft - Routine Extremities Exam Absent: cyanosis, clubbing, edema Results 02/16/18 05:40 02/17/18 04:45 Cardiac Enzymes 02/15/18 02/15/18 02/15/18 Range/Units 19:42 19:42 22:29 AST (15-37) U/L CK-MB (CK-2) 7.1 H (0.5-3.6) ng/mL Troponin I 0.03 0.14 H (0.02-0.05) ng/mL B-Natriuretic Peptide 90 (0-100) pg/mL 02/16/18 02/16/18 02/16/18 Range/Units 00:25 05:40 08:16 AST 32 (15-37) U/L CK-MB (CK-2) 6.6 H (0.5-3.6) ng/mL Troponin I 0.17 H 0.09 H (0.02-0.05) ng/mL B-Natriuretic Peptide (0-100) pg/mL 02/16/18 Range/Units 11:25 AST (15-37) U/L CK-MB (CK-2) (0.5-3.6) ng/mL Troponin I 0.05 (0.02-0.05) ng/mL B-Natriuretic Peptide (0-100) pg/mL Coagulation 02/15/18 02/16/18 Range/Units 19:42 08:16 PT 11.0 (9.8-11.6) sec APTT 34.0 H (24.3-30.1) sec B-Natriuretic Peptide 90 (0-100) pg/mL Lipids 02/17/18 Range/Units 04:45 Triglycerides 124 (42-150) mg/dL Cholesterol 268 H (120-200) mg/dL HDL Cholesterol 66.3 H (40.0-60.0) mg/dL Cholesterol/HDL Ratio 4.04 Ratio CBC 02/15/18 02/16/18 Range/Units 19:42 05:40 WBC 5.5 6.1 (4.0-11.0) th/mm3 RBC 4.38 L 4.39 L (4.50-5.90) mil/mm3 Hgb 13.9 14.1 (13.0-17.0) gm/dL Hct 40.9 40.6 (39.0-51.0) % Plt Count 169 178 (150-450) th/mm3 Neut # (Auto) 4.3 4.6 (1.8-7.7) th/mm3 Lymph # (Auto) 0.6 L 0.8 L (1.0-4.8) th/mm3 Desha # (Auto) 0.5 0.6 (0.0-0.9) th/mm3 Eos # (Auto) 0.0 0.1 (0.0-0.4) th/mm3 Baso # (Auto) 0.0 0.1 (0.0-0.2) th/mm3 Comprehensive Metabolic Panel 02/15/18 02/16/18 02/17/18 Range/Units 19:42 05:40 04:45 Sodium 126 L 129 L 131 L (136-145) meq/L Potassium 3.8 3.6 3.7 (3.5-5.1) meq/L Chloride 94 L 95 L 97 L (98-107) meq/L Carbon Dioxide 23.4 23.8 22.5 (21.0-32.0) meq/L BUN 13 11 13 (7-18) mg/dL Creatinine 1.17 1.15 1.28 (0.60-1.30) mg/dL Calcium 9.1 9.6 9.4 (8.5-10.1) mg/dL AST 32 (15-37) U/L ALT 29 (12-78) U/L Alkaline Phosphatase 73 (45-117) U/L Total Protein 7.1 (6.4-8.2) g/dL Albumin 3.5 (3.4-5.0) g/dL Intake and Output 02/16/18 02/17/18 02/17/18 22:59 06:59 14:59 Output Total 350 / 350 Balance -350 / -350 Output: Urine 350 / 350 Other: # Voids 2 Date of Last Bowel Movement 02/16/18 - Imaging and Cardiology Imaging: Impressions Myocardial Perfusion Scan Nuc Med 02/16/18 00:00 CONCLUSION: 1. 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 No significant reversibility to suggest ischemia. Assessment and Plan - Assessment (1) Hypertension Code(s): I10 - Essential (primary) hypertension Status: Acute Plan: Cont current meds. Titrate up amlodipine if BP requires (2) Hyponatremia Code(s): E87.1 - Hypo-osmolality and hyponatremia Status: Acute Plan: Stay off thiazide diuretic (3) Elevated troponin I level Code(s): R74.8 - Abnormal levels of other serum enzymes Status: Acute Plan: no ischemia by SPECT and no angina. Medical therapy (4) Hyperlipidemia Code(s): E78.5 - Hyperlipidemia, unspecified Status: Acute Plan: Atorva 10mg started (1) Hypertension Qualifiers: Hypertension type: unspecified Qualified Code(s): I10 - Essential (primary) hypertension
== END 2018-02-17 13:17 | disposition home or self-care (01) ==
LOC: NEPE 18:34 → NEDA 23:25 → INTOOBSV 23:25 → NEDA 02-16 00:31 → NEPGCP 02-16 00:35
PROVIDERS: ADMIT Family Medicine; ATTEND Family Medicine